=== PATIENT | female | born 1940 | race Caucasian/White ===

== ENCOUNTER 2017-04-30 09:39 | Inpatient (IN) | payer MEDICARE, OTHER ==
[~2017-04-30] VITALS: Ht 154.9 cm; Wt 66.9 kg
--- NOTE | 2017-04-30 10:07 | ERD ---
ER Documentation Chief Complaint Chief Complaint sob sent by pmd for chf HPI 76-year-old female, Mormon, with a history of CHF, LBBB, hyperlipidemia and thyroid disease, referred to the ED by her primary care physician Dr. Ornelas for evaluation of shortness of breath and congestive heart failure. She was in her usual state of health until yesterday; she began to experience exertional dyspnea and nonproductive cough. Denies chest pain or palpitations. No orthopnea or paroxysmal nocturnal dyspnea. No leg pain or swelling. Denies abdominal pain, nausea, vomiting, diarrhea constipation. No URI symptoms, rhinorrhea or odynophagia. Denies headache, visual changes, focal weakness or numbness. No skin rash. No fevers or chills. ROS All systems reviewed and are negative except as per history of present illness. Medications Home Meds Reported Medications Levothyroxine Sodium* (Levothyroxine Sodium*) 25 Mcg Tablet, 25 MCG PO BEFORE BREAKFAST, #30 TAB 04/30/17 Simvastatin* (Zocor*) 20 Mg Tablet, 20 MG PO QHS, #30 TAB 04/30/17 Allergies Allergies: Coded Allergies: Penicillins (Verified Allergy, Severe, 04/30/17) iodine (Verified Allergy, Severe, 04/30/17) PMhx/Soc Reviewed in chart. As per HPI. It was witnessed. History of Surgery: Yes (Cholecystectomy, partial hysterectomy) Anesthesia Reaction: No Hx Neurological Disorder: No Hx Respiratory Disorders: No Hx Cardiac Disorders: Yes (CHF, Left bundle branch block) Hx Psychiatric Problems: No Hx Miscellaneous Medical Probl: Yes (Hyperlipidemia, thyroid) Hx Alcohol Use: Yes Hx Substance Use: No Hx Tobacco Use: No FmHx Mother: CVA at the age of 80. No family history of coronary artery disease or sudden cardiac . Physical Exam Vitals Vital Signs Date Time Temp Pulse Resp B/P Pulse Ox O2 Delivery O2 Flow Rate FiO2 04/30/17 13:22 98.6 89 18 126/82 98 2.0 04/30/17 10:15 Nasal Cannula 2 04/30/17 09:42 98.6 115 20 147/84 94 Physical Exam Const: Alert, no acute distress. Head: Atraumatic Eyes: Normal Conjunctiva ENT: Normal External Ears, Nose and Mouth. Neck: Full range of motion. JVD. No lymphadenopathy or masses Resp: Breath sounds are equal bilaterally with crackles at the bases. No rhonchi or wheezes. Cardio: Regular rate and rhythm, no murmurs Abd: Soft, non tender, obese, non distended. Normal bowel sounds Skin: No petechiae or rashes Back: No midline or flank tenderness Ext: No cyanosis. 1+ pretibial edema. No calf swelling or tenderness. Pulses 4+ in all extremities. Neur: Awake and alert no focal deficit observed. Psych: Normal Mood and Affect Result Diagram: 04/30/17 1021 04/30/17 1021 Results 24 hrs Laboratory Tests Test 04/30/17 10:21 White Blood Count 7.610^3/ul Red Blood Count 4.8810^6/ul Hemoglobin 14.4g/dl Hematocrit 43.2% Mean Corpuscular Volume 88.5fl Mean Corpuscular Hemoglobin 29.5pg Mean Corpuscular Hemoglobin Concent 33.3g/dl Red Cell Distribution Width 12.0% Platelet Count 35983^3/UL Mean Platelet Volume 11.9fl Neutrophils % 64.7% Lymphocytes % 26.0% Monocytes % 7.1% Eosinophils % 1.5% Basophils % 0.4% Nucleated Red Blood Cells % 0.0/100WBC Neutrophils # 4.910^3/ul Lymphocytes # 2.010^3/ul Monocytes # 0.510^3/ul Eosinophils # 0.110^3/ul Basophils # 0.010^3/ul Nucleated Red Blood Cells # 0.010^3/ul Prothrombin Time 13.8Sec Prothrombin Time Ratio 1.1 INR International Normalized Ratio 1.06 Activated Partial Thromboplast Time 30.0Sec Sodium Level 146mmol/L Potassium Level 4.3mmol/L Chloride Level 108mmol/L Carbon Dioxide Level 24mmol/L Anion Gap 18 Blood Urea Nitrogen 15mg/dl Creatinine 0.98mg/dl Glucose Level 107mg/dl Calcium Level 9.6mg/dl Total Bilirubin 2.3mg/dl Direct Bilirubin 0.00mg/dl Indirect Bilirubin 2.3mg/dl Aspartate Amino Transf (AST/SGOT) 40IU/L Alanine Aminotransferase (ALT/SGPT) 41IU/L Alkaline Phosphatase 55IU/L Troponin I < 0.012ng/ml B-Type Natriuretic Peptide 00691BR/ML Total Protein 8.0g/dl Albumin 4.3g/dl Globulin 3.70g/dl Albumin/Globulin Ratio 1.16 Thyroid Stimulating Hormone (TSH) 2.430MIU/L Free Thyroxine 1.71ng/dl Current Medications Medications (Trade) Dose Ordered Sig/Merlyn Route PRN Reason Start Time Stop Time Status Last Admin Dose Admin Furosemide (Lasix) 20 mg ONCE ONCE IV 04/30/17 10:30 04/30/17 10:31 DC 04/30/17 11:08 Ondansetron HCl (Zofran Inj) 4 mg ER BRIDGE PRN IV NAUSEA AND/OR VOMITING 04/30/17 12:00 05/01/17 11:59 Acetaminophen (Tylenol Tab) 650 mg ER BRIDGE PRN PO MILD PAIN/FEVER 04/30/17 12:00 05/01/17 11:59 Levothyroxine Sodium (Synthroid) 25 mcg BEFORE BREAKFAST PO 05/01/17 07:00 Atorvastatin Calcium (Lipitor) 10 mg AC DINNER PO 04/30/17 17:30 05/08/17 17:29 IV Flush (NS 3 ml) 3 ml PER PROTOCOL IV 04/30/17 16:30 Lorazepam (Ativan) 0.5 mg Q8H PRN PO ANXIETY 04/30/17 16:30 Aspirin (Aspirin) 81 mg DAILY PO 05/01/17 09:00 Nitroglycerin (Nitroglycerin (Sl Tab) 0.4 Mg) 1 tab Q5M PRN SL CHEST PAIN 04/30/17 16:30 Zolpidem Tartrate (Ambien) 5 mg QHS PRN PO INSOMNIA 04/30/17 16:30 Docusate Sodium (Colace) 100 mg Q12H PRN PO CONSTIPATION 04/30/17 16:30 Famotidine (Pepcid) 20 mg Q12 PO 04/30/17 21:00 Enoxaparin Sodium (Lovenox) 30 mg DAILY SC 05/01/17 09:00 LABS: CBC unremarkable. TFT's WNL. Mild hypernatremia. Hyperbilirubinemia and markedly elevated BNP. EKG: TIME: 09: 52. Sinus tachycardia. Ventricular rate 115. Left bundle branch block. Normal NC interval. QTC 575 ms which is prolonged. No acute ST segment elevation or depression. No ectopy. EP Interpretation: Abnormal EKG. IMAGING: Chest AP portable: EP interpretation: Cardiomegaly with pulmonary vascular congestion and trace effusion consistent with congestive heart failure. PROCEDURE: Chest x-ray CLINICAL INDICATION: Shortness of breath TECHNIQUE: Chest single view COMPARISON: None FINDINGS: The heart is moderately enlarged in size. Is mild central venous congestion. Suspect small bilateral pleural effusions. There is low lung volumes with linear lower lobe atelectasis. IMPRESSION: 1. Cardiomegaly with mild CHF and probable trace bilateral pleural effusions. 2. Low lung volumes with linear bibasilar atelectasis RPTAT: HH .Will Tavares MD, MD Date Time Electronically viewed and signed by .Will Tavares MD, MD on 04/30/2017 10:28 .W/ Procedures/MDM DOCUMENTS REVIEWED: ED nurse, PMD clinic notes. MEDICAL DECISION MAKIN-year-old female, Mormon with a history of CHF, LBBB, hyperlipidemia and thyroid disease,referred to the ED by her primary care physician Dr. Ornelas for evaluation of shortness of breath. Chest x-ray reveals cardiomegaly with pulmonary vascular congestion consistent with congestive heart failure. Diuresis in the emergency department with Lasix. No acute ischemic EKG changes, chest pain, elevated troponin or other signs of acute coronary syndrome. No leg symptoms hence DVT and pulmonary embolism is unlikely. No hypoxia or signs of respiratory failure. Patient will be admitted for diuresis, cardiology consultation, further evaluation and management. Counseled patient regarding diagnosis, diagnostic results and plan for admission. CALLS/CONSULTS: Time 11:00, Dr. Bird, Dr. Simpson will see the patient in the ED. CALLS/CONSULTS: Time 11:20, Dr. Ornelas, Recommends to telemetry. Requests 5W. PATIENT CARE TRANSITIONED: Time 11:30, Dr. Ornelas. Departure Diagnosis: Primary Impression: Shortness of breath Additional Impressions: Acute on chronic systolic congestive heart failure Left bundle branch block Condition: Serious JUANCHO ALMONTE MD Apr 30, 2017 10:07
--- NOTE | 2017-04-30 10:28 | RADRPT ---
PROCEDURE: Chest x-ray CLINICAL INDICATION: Shortness of breath TECHNIQUE: Chest single view COMPARISON: None FINDINGS: The heart is moderately enlarged in size. Is mild central venous congestion. Suspect small bilateral pleural effusions. There is low lung volumes with linear lower lobe atelectasis. IMPRESSION: 1. Cardiomegaly with mild CHF and probable trace bilateral pleural effusions. 2. Low lung volumes with linear bibasilar atelectasis RPTAT: HH .Will Tavares MD, Date Time Electronically viewed and signed by .Will Tavares MD, on 04/30/2017 10:28 .W/
[2017-04-30] MEDS ORDERED: FUROSEMIDE 20 MG INJ IV ONE (10:30)
[2017-04-30 10:52] LABS: BASOPHILS % 0.4 % (0.0-2.0); EOSINOPHILS # 0.1 10^3/ul (0.0-0.5); EOSINOPHILS % 1.5 % (0.0-7.0); HEMATOCRIT 43.2 % (37.0-47.0); HEMOGLOBIN 14.4 g/dl (12.0-16.0); MEAN CORPUSCULAR HEMOGLOBIN 29.5 pg (29.0-33.0); MEAN CORPUSCULAR HGB CONC 33.3 g/dl (32.0-37.0); MEAN CORPUSCULAR VOLUME 88.5 fl (82.0-101.0); MEAN PLATELET VOLUME 11.9 fl (7.4-10.4); MONOCYTE # 0.5 10^3/ul (0.3-0.9); MONOCYTES % 7.1 % (0.0-11.0); NEUTROPHIL # 4.9 10^3/ul (1.6-7.5); NEUTROPHILS % 64.7 % (39.0-77.0); PLATELET COUNT 203 10^3/UL (140-415); RED BLOOD COUNT 4.88 10^6/ul (4.20-5.40); WHITE BLOOD COUNT 7.6 10^3/ul (4.8-10.8)
[2017-04-30] MEDS ORDERED: LEVO25TA53 PO (10:55)
[2017-04-30] MEDS ORDERED: SIMV20TA PO (10:55)
[2017-04-30 11:04] LABS: ALANINE AMINOTRANSFERASE 41 IU/L (13-69); ALBUMIN 4.3 g/dl (3.3-4.9); ALBUMIN/GLOBULIN RATIO 1.16; ALKALINE PHOSPHATASE 55 IU/L (42-121); ANION GAP 18 (8-16); ASPARTATE AMINO TRANSFERASE 40 IU/L (15-46); BILIRUBIN,INDIRECT 2.3 mg/dl (0-1.1); BILIRUBIN,TOTAL 2.3 mg/dl (0.2-1.3); BLOOD UREA NITROGEN 15 mg/dl (7-20); CALCIUM 9.6 mg/dl (8.4-10.2); CARBON DIOXIDE 24 mmol/L (21-31); CHLORIDE 108 mmol/L (97-110); CREATININE 0.98 mg/dl (0.44-1.00); GLUCOSE 107 mg/dl (70-220); POTASSIUM 4.3 mmol/L (3.5-5.1); SODIUM 146 mmol/L (135-144)
[2017-04-30 11:17] LABS: TROPONIN-I < 0.012 ng/ml (0.00-0.12)
[2017-04-30 11:36] LABS: THYROID STIMULATING HORMONE 2.43 MIU/L (0.465-4.680)
[2017-04-30 11:50] LABS: INR 1.06; PROTIME 13.8 Sec (12.2-14.2); PT RATIO 1.1
[2017-04-30] MEDS ORDERED: ONDANSETRON 4 MG INJ IV PRN (12:00)
[2017-04-30] MEDS ORDERED: ACETAMINOPHEN 325 MG TAB PO PRN (12:00)
--- NOTE | 2017-04-30 13:35 | CONS ---
Date/Time of Note Date/Time of Note DATE: 04/30/17 TIME: 13:32 Assessment/Plan Assessment/Plan Chief Complaint/Hosp Course Acute on chronic systolic heart failure- NYHA III-IV on presentation, unclear etiology of myopathy, declined previous cath. will need diuresis and initiation of medical therapy as toelrated by bp. - iv lasix - watch i/o, daily wts - watch cr, electrolytes - add low dose acei, conisder low dose bb as pt improves if bp stable - serial trop/ekg - echo Hypothyroid: - on therapy, check labs Problems: Consultation Date/Type/Reason Admit Date/Time 04/30/2017 Date of Consultation: Apr 30, 2017 Type of Consultation: Cardiology Reason for Consultation CHF Referring Provider: GARY FARRAR MD Hx of Present Illness 76 y.o. with chronic systolic heart failure, LBBB, ef 45-50% presenting with progressive dyspnea on rest and exertion x 1-2 days. + pnd, orhtopnea, no edema. + dypnea on exertion, short distances even. stops and improves after a few mins. pt with mild chest pressure when walking as well with the sob. no cp at rest. no dizziness, palpitations, fainting. no n/v, fevers, chilss, sweats. no change in diet, heavy salt load. does not take any chf mediations, only simvastatin. all other systems negative Past Medical History Cardiomyopathy, Hypercholesterolemia (272.0) (E78.00) Hypothyroidism (244.9) (E03.9) Left bundle-branch block (426.3) (I44.7) Palpitations (785.1) (R00.2) Shortness of breath (786.05) (R06.02) Social History Never smoker Family History Family history of cerebrovascular accident (CVA) (V17.1) (Z82.3) Exam/Review of Systems Vital Signs Vitals Vital Signs Date Time Temp Pulse Resp B/P Pulse Ox O2 Delivery O2 Flow Rate FiO2 04/30/17 13:22 98.6 89 18 126/82 98 2.0 04/30/17 10:15 Nasal Cannula Exam Constitutional: alert, oriented Psych: nl mood/affect, no complaints Head: normocephalic Eyes: EOMI, nl conjunctiva ENMT: nl external ears & nose Neck: non-tender, supple, No jvd Respiratory: crackles/rales Cardiovascular: S3, nl pulses, regular rate and rhythm, systolic murmur Gastrointestinal: non-tender, soft Musculoskeletal: nl extremities to inspection, nl gait and stance Extremities: normal pulses Neurological: HOME HEALTH TRAVEL PT II-XII intact, nl mental status, nl speech, nl strength Results Result Diagram: 04/30/17 1021 04/30/17 1021 Results 24 hrs Laboratory Tests Test 04/30/17 10:21 White Blood Count 7.6 Red Blood Count 4.88 Hemoglobin 14.4 Hematocrit 43.2 Mean Corpuscular Volume 88.5 Mean Corpuscular Hemoglobin 29.5 Mean Corpuscular Hemoglobin Concent 33.3 Red Cell Distribution Width 12.0 Platelet Count 203 Mean Platelet Volume 11.9 H Neutrophils % 64.7 Lymphocytes % 26.0 Monocytes % 7.1 Eosinophils % 1.5 Basophils % 0.4 Nucleated Red Blood Cells % 0.0 Neutrophils # 4.9 Lymphocytes # 2.0 Monocytes # 0.5 Eosinophils # 0.1 Basophils # 0.0 Nucleated Red Blood Cells # 0.0 Prothrombin Time 13.8 Prothrombin Time Ratio 1.1 INR International Normalized Ratio 1.06 Activated Partial Thromboplast Time 30.0 Sodium Level 146 H Potassium Level 4.3 Chloride Level 108 Carbon Dioxide Level 24 Anion Gap 18 H Blood Urea Nitrogen 15 Creatinine 0.98 Glucose Level 107 Calcium Level 9.6 Total Bilirubin 2.3 H Direct Bilirubin 0.00 Indirect Bilirubin 2.3 H Aspartate Amino Transf (AST/SGOT) 40 Alanine Aminotransferase (ALT/SGPT) 41 Alkaline Phosphatase 55 Troponin I < 0.012 B-Type Natriuretic Peptide 98154 H Total Protein 8.0 Albumin 4.3 Globulin 3.70 H Albumin/Globulin Ratio 1.16 Thyroid Stimulating Hormone (TSH) 2.430 Free Thyroxine 1.71 Imaging Free Text/Dictation CXR report reviewed in emr EKG: image reviewed, NSR LBBB, no change from baseline SHEA MONGE Apr 30, 2017 13:35
[2017-04-30] MEDS ORDERED: NITROGLYCERIN (SL) 0.4 MG TAB SL PRN (16:30)
[2017-04-30] MEDS ORDERED: ZOLPIDEM 5 MG TAB PO PRN (16:30)
[2017-04-30] MEDS ORDERED: DOCUSATE SODIUM 100 MG CAP PO PRN (16:30)
[2017-04-30] MEDS ORDERED: NACL 0.9% 3 ML SYG IV SCH (16:30)
[2017-04-30] MEDS ORDERED: LORAZEPAM 0.5 MG TAB PO PRN (16:30)
[2017-04-30] MEDS ORDERED: ATORVASTATIN 10 MG TAB PO SCH (17:30)
--- NOTE | 2017-04-30 18:52 | HP ---
DATE OF ADMISSION: 04/30/2017 HISTORY OF PRESENT ILLNESS: This is one of several [facility] [place] admissions for this 76-year-old woman admitted with chief complaint of shortness of breath. The patient presented to my office this morning complaining of approximately a 14-hour history of sh ortness of breath on exertion. Denied any chest pain or palpitations or other symptomology and at est she felt alright, but also complained of some orthopnea and had difficulty lying flat. She pres ented to the office with the above complaints. Evaluation in my office revealed the following: The patient had somewhat of a tachycardia with a pu lse rate of 108. Her EKG revealed a chronic change, which was a left bundle branch block, however, heart rate was much faster than usual and her chest x-ray was compatible with congestive heart failu re with cardiomegaly and mild congestive changes. [facility] evaluation was undertaken and the patient will be admitted with a diagnos is of new onset congestive heart failure, rule out an [place], rule out other etiologies. In terms of her prior cardiac history, the patient has been followed by Dr. García Rodriguez for some no nspecific cardiac complaints, which revealed an abnormality, as well as a thallium treadmill. She h as had chronic left bundle branch block and was diagnosed with idiopathic cardiomyopathy at that par ticular point in time. She is also being treated for hyperlipidemia as well as low level hypothyroi dism. PAST MEDICAL AND SURGICAL HISTORY: Included the following: Her pregnancies were vaginal deliveries . She was admitted approximately a year or so ago at [facility] with severe neck pain and sym ptoms of numbness in one hand, and felt that possibly this was a stroke. However, ultimately it was determined that this was all result of cervical disk disease with radiculopathy symptoms of the abo ve. Other than that, she has had really no other medical admissions to speak of. She has had an op en cholecystectomy, had a cataract done in her right eye, had surgery on an ovary done in the past. Other than that, has not had any major surgical procedures, nor any other major medical illnesses. She has not broken any bones to her knowledge. MEDICATIONS: Currently is taking the following medications: 1. Synthroid 25 mcg a day 2. Simvastatin 20 mg a day. ALLERGIES: SHE IS ALLERGIC TO PENICILLIN, IODINE AND POSSIBLY ONE OF THE MYCINS. SOCIAL HISTORY: The patient is , has 3 children, 5 grandchildren and 2 great grandchildren. She does not smoke. Alcohol socially. Does not drink coffee. Usually has no difficulty sleeping at night. 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 FAMILY HISTORY: Father at 90 of cancer of the stomach. Mother at 91 of a stroke. Two sisters are living, 2 brothers . There is family history of diabetes, heart cancer, hypertension, and stroke. REVIEW OF SYSTEMS HEENT: Denies any significant headaches. CARDIORESPIRATORY: Only currently has some shortness of breath on exertion, as well as dyspnea and orthopnea. GASTROINTESTINAL: No melena or hematemesis. GENITOURINARY: No urgency, frequency. 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 MUSCULOSKELETAL: Positive for neck pain. NEUROPSYCHIATRIC: Unremarkable. GENERAL HEALTH: Has been good. PHYSICAL EXAMINATION: VITAL SIGNS: The patient's blood pressure was 126/82, pulse was 115 initially, came down to 89 afte r diuretic, temperature was 98.6, O2 sat was 98%. GENERAL: The patient was noted to be a well-developed, well-nourished female, alert and cooperative , in no apparent acute distress, oriented to time, place, and person. HEAD, EARS, EYES, NOSE AND THROAT: Head was atraumatic. Eyes: Pupils were equal, reactive to ligh t and accommodation. Fundi were benign. Tympanic membranes were unremarkable. Nose was negative. Mouth was unremarkable. Fair oral hygiene was present. NECK: Supple without any rigidity. Trachea was midline. Thyroid was within normal limits. Neck v eins were slightly distended. Carotid pulses were equal. No bruits were heard. BACK: Unremarkable. CHEST: Symmetrical. BREASTS AND AXILLARY: Did not reveal any masses. LUNGS: Revealed bibasilar scattered coarse rales and a few rhonchi being noted. HEART: PMI is somewhat to the left of the midclavicular line. Sinus tachycardia was noted. No sig nificant murmurs, rubs, gallops were noted. ABDOMEN: Soft, good bowel sounds were noted. No obvious organomegaly, masses, or tenderness. GENITALIA: Normal female external genitalia. PELVIC/RECTAL: Per railway station manager. EXTREMITIES: Did not reveal any clubbing, edema or cyanosis. Peripheral pulses were physiologic. SKIN: Moist and warm without any eruptions. No gross lymphadenopathy was noted. NEUROLOGIC: Grossly intact. IMPRESSION: 1. New onset congestive heart failure in a patient with a history of idiopathic cardiomyopathy, roxann or history of chest pains. 2. Hyperlipidemia. 3. Hypothyroidism. 4. Chronic left bundle branch block. 5. Currently symptoms of shortness of breath as well. DISCUSSION: Review of laboratory and other appropriate data revealed the following: In terms of th e patient's laboratory, CBC was normal. Chemistry panel was normal. BNP was markedly elevated at 1 2,800 compatible with her congestive heart failure. TSH was 2.4, free T4 was normal at 1.71. The p atient's chest x-ray, as mentioned, revealed evidence of congestive heart failure with cardiomegaly and increased markings compatible with failure, albeit mild congestive heart failure, and an early b ilateral pleural effusions being noted as well. The patient's EKG revealed a left bundle branch blo ck and sinus tachycardia. No other acute changes being noted. Other studies done: Pending are ech ocardiogram as well as maybe CAT scan and other appropriate studies. The patient was seen by cardio logist. Lasix was ordered. Further orders are pending. CONDITION ON ADMISSION: Stable. PROGNOSIS: Obviously dependent upon ultimate diagnosis. Dictated By: GARY RAMIREZ/NORA Conf#: [id number] DID#: [id number]
[2017-04-30 18:56] LABS: CREATINE KINASE 71 IU/L (23-200)
[2017-04-30 19:09] LABS: CK-MB 1.36 ng/ml (0.0-2.4)
[2017-04-30 19:12] LABS: TROPONIN-I < 0.012 ng/ml (0.00-0.12)
[2017-04-30] MEDS: ATORVASTATIN 10 MG TAB PO SCH (21:50)
[2017-04-30] MEDS: FAMOTIDINE 20 MG TAB PO SCH (21:50)
[2017-04-30 22:21] LABS: CREATINE KINASE 84 IU/L (23-200)
[2017-04-30 22:30] VITALS: Ht 154.9 cm; Wt 66.9 kg
[2017-04-30 22:31] LABS: CK-MB 1.38 ng/ml (0.0-2.4)
[2017-04-30 22:34] LABS: TROPONIN-I < 0.012 ng/ml (0.00-0.12)
[2017-04-30 22:42] VITALS: TEMP 98.2
[2017-05-01] VITALS (11 sets, daily range): BP systolic 103–131; BP diastolic 2–75; PULSE 84–93; RESP 16–19
[2017-05-01] MEDS: LEVOTHYROXINE 25 MCG TAB PO SCH (06:45)
[2017-05-01 08:21] LABS: BASOPHILS % 0.6 % (0.0-2.0); EOSINOPHILS # 0.1 10^3/ul (0.0-0.5); EOSINOPHILS % 1.3 % (0.0-7.0); HEMATOCRIT 41.7 % (37.0-47.0); HEMOGLOBIN 14.2 g/dl (12.0-16.0); LYMPHOCYTES # 1.6 10^3/ul (0.8-2.9); LYMPHOCYTES % 22.3 % (15.0-51.0); MEAN CORPUSCULAR HEMOGLOBIN 29.7 pg (29.0-33.0); MEAN CORPUSCULAR HGB CONC 34.1 g/dl (32.0-37.0); MEAN CORPUSCULAR VOLUME 87.2 fl (82.0-101.0); MEAN PLATELET VOLUME 11.8 fl (7.4-10.4); MONOCYTE # 0.6 10^3/ul (0.3-0.9); NEUTROPHIL # 4.7 10^3/ul (1.6-7.5); NEUTROPHILS % 66.5 % (39.0-77.0); PLATELET COUNT 213 10^3/UL (140-415); RED BLOOD COUNT 4.78 10^6/ul (4.20-5.40)
[2017-05-01 08:38] LABS: INR 1.06; PROTIME 13.8 Sec (12.2-14.2); PT RATIO 1.1
[2017-05-01 08:39] LABS: PARTIAL THROMBOPLASTIN TIME 29.4 Sec (25.0-35.0)
[2017-05-01 08:48] LABS: ALBUMIN/GLOBULIN RATIO 1.14; BILIRUBIN,INDIRECT 2.8 mg/dl (0-1.1); BILIRUBIN,TOTAL 2.8 mg/dl (0.2-1.3); CALCIUM 9.5 mg/dl (8.4-10.2); CALCIUM 9.7 mg/dl (8.4-10.2); CREATININE 1.03 mg/dl (0.44-1.00); CREATININE 1.05 mg/dl (0.44-1.00); MAGNESIUM 2.1 mg/dl (1.7-2.5); POTASSIUM 4.2 mmol/L (3.5-5.1); POTASSIUM 4.4 mmol/L (3.5-5.1); TOTAL PROTEIN 7.5 g/dl (6.1-8.1)
[2017-05-01] MEDS: ENOXAPARIN 30 MG/0.3 ML SYG SC SCH (09:00)
[2017-05-01] MEDS: ASPIRIN 81 MG TAB PO SCH (09:04)
[2017-05-01] MEDS: FAMOTIDINE 20 MG TAB PO SCH ×2 (09:04→21:32)
--- NOTE | 2017-05-01 09:05 | RADRPT ---
Echocardiogram Report Patient Name: REBECCA ESPINAL H Gender: Female Date: 1940 Study Date: 30-Apr-2017 Body Technician: Damaso Santa [facility] Location: [facility] Ref. Physician: JL MONGE Quality: Adequate Procedures: Transthoracic echocardiogram with complete 2D, M-Mode, and doppler examination. Indications: Congestive Heart Failure. 2D/M Mode Doppler Measurement Value Normal Ranges Measurement Value Normal Ranges LVIDd 2D 6.8 3.5 - 5.6 cm AV Peak Nikunj 1.5 m/sec LVIDs 2D 5.3 2.1 - 4.1 cm AV Peak PG 9.0 mmHg FS 2D 21.4 % LVOT Peak Nikunj 0.4 m/sec LVPWd 2D 1.1 0.6 - 1.1 cm LVOT Peak PG 1.0 mmHg IVSd 2D 1.2 0.6 - 1.1 cm MV E Peak Nikunj 1.5 m/sec IVS/LVPW 2D 1.0 MV Decel Time 113 msec AoR Diam 2D 2.8 2.0 - 3.7 cm MR Peak PG 85.0 mmHg LA/Ao 2D 2 0 - 1 MR Peak Nikunj 4.6 m/sec EDV 2D 313.0 cm3 TR Peak Nikunj 2.8 m/sec ESV 2D 152.0 cm3 TR Peak PG 32.0 mmHg LA Dimen 2D 4.5 2.3 - 4.0 cm RVSP 37.0 mmHg Findings Left Ventricle: Left ventricular wall thickness upper limits of normal. Severe enlargement of left ventricle cavity. Severe global left ventricular systolic dysfunction. Ejection fraction is visually estimated at 1015 %. Tissue Doppler/Mitral Doppler indices are consistent with restrictive physiology with markedly elevated left atrial pressure (Stage IIIIV diastolic dysfunction). E/E`=17. There is global hypokinesis with some mild regional variation. Right Ventricle: Normal right ventricular size. Normal right ventricular systolic function. Left Atrium: There is moderate enlargement of left atrium. Right Atrium: The right atrium is normal in size. Mitral Valve: Mitral valve leaflets appear mildly thickened. Tenting of mitral valve leaflets due to severe LV dilation with mild mitral valve regurgitation. Aortic Valve: No significant aortic stenosis. Aortic sclerosis without stenosis. Mild aortic valve regurgitation. Tricuspid Valve: Normal appearance of the tricuspid valve. Right ventricular systolic pressure is consistent with at least mild pulmonary hypertension. Unable to obtain RVSP due to minimal presence of tricuspid regurgitation. Estimated peak PA systolic pressure mmHg. There is mild tricuspid regurgitation. Pulmonic Valve: Pulmonic valve not well visualized. No evidence of pulmonic regurgitation. Pericardium: Small to moderate pericardial effusion. No echocardiographic evidence to suggest pericardial tamponade. Aorta: Normal aortic root. IVC: Normal size and normal respiratory collapse consistent with normal right atrial pressure. Conclusions 1.Left ventricular wall thickness upper limits of normal. Severe enlargement of left ventricle cavity. Severe global left ventricular systolic dysfunction. Ejection fraction is visually estimated at 10-15 %. Tissue Doppler/Mitral Doppler indices are consistent with restrictive physiology with markedly elevated left atrial pressure (Stage III-IV diastolic dysfunction). E/E`=17. There is global hypokinesis with some mild regional variation. 2.Normal right ventricular size. Normal right ventricular systolic function. 3.There is moderate enlargement of left atrium. 4.The right atrium is normal in size. 5.Mitral valve leaflets appear mildly thickened. Tenting of mitral valve leaflets due to severe LV dilation with mild mitral valve regurgitation. 6.No significant aortic stenosis. Aortic sclerosis without stenosis. Mild aortic valve regurgitation. 7.Normal appearance of the tricuspid valve. Right ventricular systolic pressure is consistent with at least mild pulmonary hypertension. Unable to obtain RVSP due to minimal presence of tricuspid regurgitation. Estimated peak PA systolic pressure mmHg. There is mild tricuspid regurgitation. 8.Small to moderate pericardial effusion. No echocardiographic evidence to suggest pericardial tamponade. 9.Normal size and normal respiratory collapse consistent with normal right atrial pressure. 10.No Vegetation, masses, or thrombi seen. Electronically Signed By: Jl Monge 01-May-2017 09:04:16 -0800 Patient Name: REBECCA ESPINAL H Study Date: 30-Apr-2017 [id number]
--- NOTE | 2017-05-01 10:12 | CONS ---
Date/Time of Note Date/Time of Note DATE: 05/01/17 TIME: 10:06 Assessment/Plan Assessment/Plan Chief Complaint/Hosp Course Acute on chronic systolic heart failure-patient has had interval decrease in ejection fraction now 15-20% with severe LV dilation. Previous report is 40-45 % on a outpatient stress test 2016. Patient presenting with NYHA III-IV symptoms, unclear etiology of myopathy, declined previous cath. Pt will need diuresis and initiation of medical therapy as tolerated by bp. - iv lasix 40 mg. Convert to p.o. prior to discharge - watch i/o, daily wts - watch cr, electrolytes - add low dose lisinopril 2.5 mg p.o. daily -If tolerating lisinopril can add low-dose Coreg tomorrow 3.125MG po bid -Add on labs: Iron/ferritin, HIV antibody screen, thyroid studies have been repeated and are within normal limits Patient will need left heart cath to evaluate for ischemic heart disease. Patient currently states she would like to go home and complete this workup as outpatient if possible. Hypothyroid: - on therapy, labs wnl Problems: Consultation Date/Type/Reason Admit Date/Time Apr 30, 2017 at 11:35 Initial Consult Date 04/30/2017 Type of Consultation: Cardiology Reason for Consultation CHF Referring Provider: GARY FARRAR MD 24 HR Interval Summary Free Text/Dictation Patient states feels better today. Did have good urine output after Lasix yesterday. Patient ambulatory no chest pain shortness of breath. Denies any palpitations dizziness lightheadedness. Telemetry reviewed: Normal sinus rhythm left bundle branch block no arrhythmia Detailed Summary Eyes: no complaints ENT: no complaints Respiratory: no complaints Cardiovascular: no complaints Gastrointestinal: no complaints Exam/Review of Systems Vital Signs Vitals Vital Signs Date Time Temp Pulse Resp B/P Pulse Ox O2 Delivery O2 Flow Rate FiO2 05/01/17 08:41 90 05/01/17 07:24 98.2 16 125/70 93 04/30/17 22:42 Nasal Cannula 2.0 Intake and Output 04/30/17 04/30/17 05/01/17 15:00 23:00 07:00 Intake Total 300 ml Output Total 600 ml 400 ml Balance -600 ml -100 ml Exam Constitutional: alert, oriented Psych: nl mood/affect, no complaints Head: normocephalic Eyes: EOMI, nl conjunctiva ENMT: nl external ears & nose Neck: non-tender, supple, No jvd Respiratory: crackles/rales Cardiovascular: S3, nl pulses, regular rate and rhythm, systolic murmur Gastrointestinal: non-tender, soft Musculoskeletal: nl extremities to inspection, nl gait and stance Extremities: normal pulses 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, nl mental status, nl speech, nl strength Results Result Diagram: 05/01/17 0749 05/01/17 0749 Results 24 hrs Laboratory Tests Test 04/30/17 10:21 04/30/17 18:15 04/30/17 21:40 05/01/17 07:49 White Blood Count 7.6 7.0 Red Blood Count 4.88 4.78 Hemoglobin 14.4 14.2 Hematocrit 43.2 41.7 Mean Corpuscular Volume 88.5 87.2 Mean Corpuscular Hemoglobin 29.5 29.7 Mean Corpuscular Hemoglobin Concent 33.3 34.1 Red Cell Distribution Width 12.0 12.0 Platelet Count 203 200 213 Mean Platelet Volume 11.9 H 11.8 H Neutrophils % 64.7 66.5 Lymphocytes % 26.0 22.3 Monocytes % 7.1 9.0 Eosinophils % 1.5 1.3 Basophils % 0.4 0.6 Nucleated Red Blood Cells % 0.0 0.0 Neutrophils # 4.9 4.7 Lymphocytes # 2.0 1.6 Monocytes # 0.5 0.6 Eosinophils # 0.1 0.1 Basophils # 0.0 0.0 Nucleated Red Blood Cells # 0.0 0.0 Prothrombin Time 13.8 13.8 Prothrombin Time Ratio 1.1 1.1 INR International Normalized Ratio 1.06 1.06 Activated Partial Thromboplast Time 30.0 29.4 Sodium Level 146 H 145 H Potassium Level 4.3 4.2 Chloride Level 108 104 Carbon Dioxide Level 24 31 Anion Gap 18 H 14 Blood Urea Nitrogen 15 16 Creatinine 0.98 1.05 H Glucose Level 107 116 Calcium Level 9.6 9.7 Total Bilirubin 2.3 H 2.8 H Direct Bilirubin 0.00 0.00 Indirect Bilirubin 2.3 H 2.8 H Aspartate Amino Transf (AST/SGOT) 40 28 Alanine Aminotransferase (ALT/SGPT) 41 39 Alkaline Phosphatase 55 53 Troponin I < 0.012 < 0.012 < 0.012 B-Type Natriuretic Peptide 58476 H Total Protein 8.0 7.5 Albumin 4.3 4.0 Globulin 3.70 H 3.50 H Albumin/Globulin Ratio 1.16 1.14 Thyroid Stimulating Hormone (TSH) 2.430 Free Thyroxine 1.71 Creatine Kinase 71 84 Creatine Kinase Index 1.9 1.6 Creatinine Kinase MB (Mass) 1.36 1.38 Hemoglobin A1c 6.1 H Magnesium Level 2.1 Medications Medications Current Medications Lorazepam (Ativan) 0.5 mg Q8H PRN PO ANXIETY Last administered on 05/01/17 06 :38; Admin Dose 0.5 MG; Start 04/30/17 at 16:30 Aspirin (Aspirin) 81 mg DAILY PO Last administered on 05/01/17 09:04; Admin Dose 81 MG; Start 05/01/17 at 09:00 Nitroglycerin (Nitroglycerin (Sl Tab) 0.4 Mg) 1 tab Q5M PRN SL CHEST PAIN; Start 04/30/17 at 16:30 Zolpidem Tartrate (Ambien) 5 mg QHS PRN PO INSOMNIA; Start 04/30/17 at 16:30 Docusate Sodium (Colace) 100 mg Q12H PRN PO CONSTIPATION; Start 04/30/17 at 16 :30 Famotidine (Pepcid) 20 mg Q12 PO Last administered on 05/01/17 09:04; Admin Dose 20 MG; Start 04/30/17 at 21:00 Enoxaparin Sodium (Lovenox) 30 mg DAILY SC ; Start 05/01/17 at 09:00 Atorvastatin Calcium (Lipitor) 10 mg HS PO Last administered on 04/30/17 21: 50; Admin Dose 10 MG; Start 04/30/17 at 21:00 Furosemide (Lasix) 40 mg DAILY IV ; Start 05/01/17 at 10:00 Lisinopril (Zestril) 2.5 mg DAILY PO ; Start 05/01/17 at 09:30 Procedures Procedures Chest x-ray report reviewed in EMR: 1. Cardiomegaly with mild CHF and probable trace bilateral pleural effusions. 2. Low lung volumes with linear bibasilar atelectasis SHEA MONGE May 01, 2017 10:12
[2017-05-01 10:40] LABS: ADD UMIC NO; UR ASCORBIC ACID NEGATIVE (NEGATIVE); UR BILIRUBIN (Dip) NEGATIVE (NEGATIVE); UR BLOOD (Dip) NEGATIVE (NEGATIVE); UR CLARITY CLEAR (CLEAR); UR COLOR YELLOW (YELLOW); UR GLUCOSE (Dip) NEGATIVE (NEGATIVE); UR KETONES (Dip) TRACE mg/dL (NEGATIVE); UR LEUKOCYTE ESTERASE (Dip) NEGATIVE Leu/ul (NEGATIVE); UR NITRITE (Dip) NEGATIVE (NEGATIVE); UR SPECIFIC GRAVITY (Dip) 1.019 (1.003-1.030); UR TOTAL PROTEIN (Dip) NEGATIVE (NEGATIVE); UR UROBILINOGEN (Dip) NEGATIVE (NEGATIVE)
[2017-05-01 10:53] LABS: IRON 72 ug/dl (35-150)
[2017-05-01 11:02] LABS: TOTAL IRON BINDING CAPACITY 318 ug/dl (241-421)
--- NOTE | 2017-05-01 11:30 | PN ---
Date/Time of Note Date/Time of Note DATE: 05/01/17 TIME: 11:25 Assessment/Plan VTE Prophylaxis VTE Prophylaxis Intervention: ambulation, LMWH Lines/Catheters IV Catheter Type (from [facility]): [facility] Assessment/Plan Chief Complaint/Hosp Course symptoms improved much less sob had diuresis yesterday and last night cardiology note appreciate Problems: Assessment/Plan plan continue present RX patient ambulating at this point w/u in progress Subjective 24 Hr Interval Summary Constitutional: no complaints Eyes: no complaints ENT: no complaints Respiratory: no complaints Cardiovascular: no complaints Gastrointestinal: no complaints Genitourinary: no complaints Musculoskeletal: no complaints Skin: no complaints Neurologic: no complaints Endocrine: no complaints Exam/Review of Systems Vital Signs Vitals Vital Signs Date Time Temp Pulse Resp B/P Pulse Ox O2 Delivery O2 Flow Rate FiO2 05/01/17 11:22 98.3 84 16 118/64 96 04/30/17 22:42 Nasal Cannula 2.0 Intake and Output 04/30/17 04/30/17 05/01/17 15:00 23:00 07:00 Intake Total 300 ml Output Total 600 ml 400 ml Balance -600 ml -100 ml Exam Constitutional: alert Psych: no complaints Head: normocephalic ENMT: nl external ears & nose Respiratory: clear to auscultation Cardiovascular: regular rate and rhythm Gastrointestinal: soft Musculoskeletal: nl extremities to inspection Neurological: MANAGER STRATEGY II-XII intact, nl mental status, nl speech, nl strength Results Result Diagram: 05/01/17 0749 05/01/17 0749 Results 24 hrs Laboratory Tests Test 04/30/17 18:15 04/30/17 21:40 05/01/17 03:00 05/01/17 07:47 Platelet Count 200 Creatine Kinase 71 84 Creatine Kinase Index 1.9 1.6 Creatinine Kinase MB (Mass) 1.36 1.38 Troponin I < 0.012 < 0.012 Urine Color YELLOW Urine Clarity CLEAR Urine pH 5.0 Urine Specific [place] 1.019 Urine Ketones TRACE A Urine Nitrite NEGATIVE Urine Bilirubin NEGATIVE Urine Urobilinogen NEGATIVE Urine Leukocyte Esterase NEGATIVE Urine Hemoglobin NEGATIVE Urine Glucose NEGATIVE Urine Total Protein NEGATIVE Iron Level 72 Total Iron Binding Capacity 318 Percent Iron Saturation 23 Test 05/01/17 07:49 White Blood Count 7.0 Red Blood Count 4.78 Hemoglobin 14.2 Hematocrit 41.7 Mean Corpuscular Volume 87.2 Mean Corpuscular Hemoglobin 29.7 Mean Corpuscular Hemoglobin Concent 34.1 Red Cell Distribution Width 12.0 Platelet Count 213 Mean Platelet Volume 11.8 H Neutrophils % 66.5 Lymphocytes % 22.3 Monocytes % 9.0 Eosinophils % 1.3 Basophils % 0.6 Nucleated Red Blood Cells % 0.0 Neutrophils # 4.7 Lymphocytes # 1.6 Monocytes # 0.6 Eosinophils # 0.1 Basophils # 0.0 Nucleated Red Blood Cells # 0.0 Prothrombin Time 13.8 Prothrombin Time Ratio 1.1 INR International Normalized Ratio 1.06 Activated Partial Thromboplast Time 29.4 Sodium Level 145 H Potassium Level 4.2 Chloride Level 104 Carbon Dioxide Level 31 Anion Gap 14 Blood Urea Nitrogen 16 Creatinine 1.05 H Glucose Level 116 Hemoglobin A1c 6.1 H Calcium Level 9.7 Magnesium Level 2.1 Total Bilirubin 2.8 H Direct Bilirubin 0.00 Indirect Bilirubin 2.8 H Aspartate Amino Transf (AST/SGOT) 28 Alanine Aminotransferase (ALT/SGPT) 39 Alkaline Phosphatase 53 Total Protein 7.5 Albumin 4.0 Globulin 3.50 H Albumin/Globulin Ratio 1.14 Medications Medications Current Medications Lorazepam (Ativan) 0.5 mg Q8H PRN PO ANXIETY Last administered on 05/01/17 06 :38; Admin Dose 0.5 MG; Start 04/30/17 at 16:30 Aspirin (Aspirin) 81 mg DAILY PO Last administered on 05/01/17 09:04; Admin Dose 81 MG; Start 05/01/17 at 09:00 Nitroglycerin (Nitroglycerin (Sl Tab) 0.4 Mg) 1 tab Q5M PRN SL CHEST PAIN; Start 04/30/17 at 16:30 Zolpidem Tartrate (Ambien) 5 mg QHS PRN PO INSOMNIA; Start 04/30/17 at 16:30 Docusate Sodium (Colace) 100 mg Q12H PRN PO CONSTIPATION; Start 04/30/17 at 16 :30 Famotidine (Pepcid) 20 mg Q12 PO Last administered on 05/01/17 09:04; Admin Dose 20 MG; Start 04/30/17 at 21:00 Enoxaparin Sodium (Lovenox) 30 mg DAILY SC ; Start 05/01/17 at 09:00 Atorvastatin Calcium (Lipitor) 10 mg HS PO Last administered on 11/22/17at 21: 50; Admin Dose 10 MG; Start 04/30/17 at 21:00 Furosemide (Lasix) 40 mg DAILY IV ; Start 05/01/17 at 10:00 Lisinopril (Zestril) 2.5 mg DAILY PO ; Start 05/01/17 at 09:30 GARY FARRAR MD May 01, 2017 11:30
[2017-05-01] MEDS: LISINOPRIL 5 MG TAB PO SCH (11:51)
[2017-05-01] MEDS: FUROSEMIDE 40 MG INJ IV SCH (11:57)
[2017-05-01 12:11] LABS: FERRITIN 99.2 ng/ml (11.1-264.0)
[2017-05-01] MEDS: ATORVASTATIN 10 MG TAB PO SCH (21:32)
[2017-05-02] VITALS (12 sets, daily range): BP systolic 96–117; BP diastolic 54–67; PULSE 76–84; RESP 18–20
[2017-05-02] MEDS: LEVOTHYROXINE 25 MCG TAB PO SCH (06:52)
[2017-05-02 08:59] LABS: BASOPHILS % 0.4 % (0.0-2.0); EOSINOPHILS # 0.2 10^3/ul (0.0-0.5); EOSINOPHILS % 2.5 % (0.0-7.0); HEMATOCRIT 41.7 % (37.0-47.0); LYMPHOCYTES # 2.1 10^3/ul (0.8-2.9); LYMPHOCYTES % 31.8 % (15.0-51.0); MEAN CORPUSCULAR HEMOGLOBIN 29.5 pg (29.0-33.0); MEAN CORPUSCULAR HGB CONC 33.6 g/dl (32.0-37.0); MEAN CORPUSCULAR VOLUME 87.8 fl (82.0-101.0); MEAN PLATELET VOLUME 11.3 fl (7.4-10.4); MONOCYTE # 0.7 10^3/ul (0.3-0.9); NEUTROPHIL # 3.7 10^3/ul (1.6-7.5); NEUTROPHILS % 55.2 % (39.0-77.0); PLATELET COUNT 202 10^3/UL (140-415); RED BLOOD COUNT 4.75 10^6/ul (4.20-5.40); RED CELL DISTRIBUTION WIDTH 11.9 % (11.5-14.5); WHITE BLOOD COUNT 6.7 10^3/ul (4.8-10.8)
[2017-05-02] MEDS: ENOXAPARIN 30 MG/0.3 ML SYG SC SCH (09:00)
[2017-05-02] MEDS: FAMOTIDINE 20 MG TAB PO SCH ×2 (09:15→21:52)
[2017-05-02] MEDS: LISINOPRIL 5 MG TAB PO SCH (09:15)
[2017-05-02] MEDS: ASPIRIN 81 MG TAB PO SCH (09:15)
[2017-05-02] MEDS: FUROSEMIDE 40 MG INJ IV SCH (09:16)
[2017-05-02 09:23] LABS: INR 0.99; PROTIME 13.1 Sec (12.2-14.2)
[2017-05-02 09:24] LABS: PARTIAL THROMBOPLASTIN TIME 24.2 Sec (25.0-35.0)
[2017-05-02 09:28] LABS: ALBUMIN 3.8 g/dl (3.3-4.9); ALBUMIN/GLOBULIN RATIO 1.11; BILIRUBIN,INDIRECT 2.4 mg/dl (0-1.1); BILIRUBIN,TOTAL 2.4 mg/dl (0.2-1.3); CALCIUM 9.5 mg/dl (8.4-10.2); CREATININE 1.17 mg/dl (0.44-1.00); POTASSIUM 4.2 mmol/L (3.5-5.1); TOTAL PROTEIN 7.2 g/dl (6.1-8.1)
--- NOTE | 2017-05-02 10:34 | PN ---
Date/Time of Note Date/Time of Note DATE: 05/02/17 TIME: 10:28 Assessment/Plan VTE Prophylaxis VTE Prophylaxis Intervention: SCD's (pt. refusing lovenox) Lines/Catheters IV Catheter Type (from Nrs): Peripheral IV Urinary Cath still in place: No Assessment/Plan Problems: (1) Shortness of breath Status: Acute Comment: Due to below. No longer feeling SOB but continues to require O2. (2) Acute on chronic systolic and diastolic heart failure, NYHA class 3 Status: Acute Comment: Due to below but pt. not optimized. Cont. furosemide daily. Monitor BUN/Cr. On lisinopril. Adding carvedilol today per cards. Await word of cardiology (3) Idiopathic cardiomyopathy Status: Chronic Comment: defer to cardiology (4) Left bundle branch block (LBBB) Status: Chronic Comment: defer to cardiology (5) Hypothyroidism Status: Chronic Comment: Cont. LT4 (6) Hyperlipidemia Status: Chronic Comment: Cont. statin (7) Elevated hemoglobin A1c Status: Chronic Comment: Encourage lower carb intake Subjective 24 Hr Interval Summary Constitutional: improved, no complaints, requiring O2 Respiratory: no complaints, No shortness of breath Cardiovascular: no complaints Gastrointestinal: no complaints Genitourinary: no complaints Musculoskeletal: no complaints Neurologic: no complaints Exam/Review of Systems Vital Signs Vitals VS - Last 72 Hours, by Label Date Time Temp Pulse Resp B/P Pulse Ox O2 Delivery O2 Flow Rate FiO2 05/02/17 08:50 77 05/02/17 07:51 98.2 76 20 112/63 93 05/02/17 06:04 3.0 05/02/17 04:08 82 05/02/17 04:00 97.7 88 19 108/62 95 05/02/17 00:39 76 05/02/17 00:00 98.0 91 18 115/65 95 05/01/17 23:50 95 3.0 05/01/17 20:35 84 05/01/17 20:00 Nasal Cannula 2.0 05/01/17 20:00 97.8 89 19 103/61 93 05/01/17 16:22 93 05/01/17 16:00 98.2 98 18 105/62 94 05/01/17 12:30 93 05/01/17 11:22 98.3 84 16 118/64 96 05/01/17 08:41 90 11/23/17 08:00 2.0 05/01/17 07:24 98.2 70 16 125/70 93 05/01/17 04:39 87 05/01/17 04:00 98.2 95 17 131/75 98 05/01/17 00:00 87 05/01/17 00:00 98.2 94 17 130/2 95 04/30/17 22:42 98.2 94 23 120/69 99 Nasal Cannula 2.0 04/30/17 22:30 Nasal Cannula 2.0 04/30/17 20:37 98.5 93 25 115/66 96 Nasal Cannula 2.0 04/30/17 18:36 93 23 130/72 92 Nasal Cannula 2.0 04/30/17 17:00 98.6 93 18 128/70 95 04/30/17 13:22 98.6 89 18 126/82 98 2.0 04/30/17 10:15 Nasal Cannula 2 04/30/17 09:42 98.6 115 20 147/84 94 Vital Signs Date Time Temp Pulse Resp B/P Pulse Ox O2 Delivery O2 Flow Rate FiO2 05/02/17 08:50 77 05/02/17 07:51 98.2 20 112/63 93 05/02/17 06:04 3.0 05/01/17 20:00 Nasal Cannula Intake and Output 05/01/17 05/01/17 05/02/17 14:59 22:59 06:59 Intake Total 650 ml 200 ml Output Total 1000 ml 850 ml Balance -350 ml -650 ml Exam Constitutional: alert, oriented, well developed Psych: nl mood/affect, no complaints Respiratory: clear to auscultation, normal air movement Cardiovascular: nl pulses, regular rate and rhythm, No edema, No murmurs/extra sounds, No rub Gastrointestinal: bowel sounds, nl liver, spleen, non-tender, soft, No mass, No rebound or guarding Musculoskeletal: nl extremities to inspection Extremities: normal pulses, No clubbing, No cyanosis, No edema 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, nl mental status, nl speech, nl strength Results Result Diagram: 05/02/17 0815 05/02/17 0816 Results 24 hrs Laboratory Tests Test 05/02/17 08:11 05/02/17 08:15 05/02/17 08:16 Prothrombin Time 13.1 Prothrombin Time Ratio 1.0 INR International Normalized Ratio 0.99 Activated Partial Thromboplast Time 24.2 L White Blood Count 6.7 Red Blood Count 4.75 Hemoglobin 14.0 Hematocrit 41.7 Mean Corpuscular Volume 87.8 Mean Corpuscular Hemoglobin 29.5 Mean Corpuscular Hemoglobin Concent 33.6 Red Cell Distribution Width 11.9 Platelet Count 202 Mean Platelet Volume 11.3 H Neutrophils % 55.2 Lymphocytes % 31.8 Monocytes % 10.0 Eosinophils % 2.5 Basophils % 0.4 Nucleated Red Blood Cells % 0.0 Neutrophils # 3.7 Lymphocytes # 2.1 Monocytes # 0.7 Eosinophils # 0.2 Basophils # 0.0 Nucleated Red Blood Cells # 0.0 Sodium Level 143 Potassium Level 4.2 Chloride Level 103 Carbon Dioxide Level 30 Anion Gap 14 Blood Urea Nitrogen 19 Creatinine 1.17 H Glucose Level 102 Calcium Level 9.5 Total Bilirubin 2.4 H Direct Bilirubin 0.00 Indirect Bilirubin 2.4 H Aspartate Amino Transf (AST/SGOT) 25 Alanine Aminotransferase (ALT/SGPT) 36 Alkaline Phosphatase 48 Total Protein 7.2 Albumin 3.8 Globulin 3.40 H Albumin/Globulin Ratio 1.11 Medications Medications Current Medications Lorazepam (Ativan) 0.5 mg Q8H PRN PO ANXIETY Last administered on 05/01/17 06 :38; Admin Dose 0.5 MG; Start 04/30/17 at 16:30 Aspirin (Aspirin) 81 mg DAILY PO Last administered on 05/02/17 09:15; Admin Dose 81 MG; Start 05/01/17 at 09:00 Nitroglycerin (Nitroglycerin (Sl Tab) 0.4 Mg) 1 tab Q5M PRN SL CHEST PAIN; Start 04/30/17 at 16:30 Zolpidem Tartrate (Ambien) 5 mg QHS PRN PO INSOMNIA; Start 04/30/17 at 16:30 Docusate Sodium (Colace) 100 mg Q12H PRN PO CONSTIPATION; Start 04/30/17 at 16 :30 Famotidine (Pepcid) 20 mg Q12 PO Last administered on 05/02/17 09:15; Admin Dose 20 MG; Start 04/30/17 at 21:00 Enoxaparin Sodium (Lovenox) 30 mg DAILY SC ; Start 05/01/17 at 09:00 Atorvastatin Calcium (Lipitor) 10 mg HS PO Last administered on 05/01/17 21: 32; Admin Dose 10 MG; Start 04/30/17 at 21:00 Furosemide (Lasix) 40 mg DAILY IV Last administered on 05/02/17 09:16; Admin Dose 40 MG; Start 05/01/17 at 10:00 Lisinopril (Zestril) 2.5 mg DAILY PO Last administered on 05/02/17 09:15; Admin Dose 2.5 MG; Start 05/01/17 at 09:30 Carvedilol (Coreg) 3.125 mg BID PO ; Start 05/02/17 at 10:30 PAULINO PERKINS MD May 02, 2017 10:34
--- NOTE | 2017-05-02 12:25 | CONS ---
Date/Time of Note Date/Time of Note DATE: 05/02/17 TIME: 12:19 Consultation Date/Type/Reason Admit Date/Time Apr 30, 2017 at 11:35 Initial Consult Date Type of Consultation: Cardiology Referring Provider: GARY FARRAR MD 24 HR Interval Summary Free Text/Dictation 76 yowf w/ CHF (EF 45 -> 10-15%), LBBB, and other issues who presented w/ decompensated CHF. Marked decline in EF from prior. Since pt refused cardiac cath in the past, not clear if her cardiomyopathy is ischemic or non-ischemic. Based on how dilated her LV is (on echo report), this has been a acute on chronic process. Pt feels better and denies complaints, but she is still intravascularly overloaded on exam (elevated JVP, crackles in right lower base) . Would increase lisinopril to 5mg daily (and hold coreg until euvolemic). Would also give a second dose of lasix this afternoon. Needs strict I/Os and daily weights to help track progress. If pt appears euvolemic tomorrow, can add coreg (but beta blockers have no benefit in acute decompensated CHF and can actually be harmful if pt is not euvolemic yet. There benefits are long-term.) Exam/Review of Systems Vital Signs Vitals Vital Signs Date Time Temp Pulse Resp B/P Pulse Ox O2 Delivery O2 Flow Rate FiO2 05/02/17 12:15 97.9 85 20 97/56 97 05/02/17 08:00 Nasal Cannula 2.0 Intake and Output 05/01/17 05/01/17 05/02/17 14:59 22:59 06:59 Intake Total 650 ml 200 ml Output Total 1000 ml 850 ml Balance -350 ml -650 ml Exam Constitutional: alert, No distress Neck: other (JVP to angle of jaw w/ + HJR) Respiratory: other (crackles at right base, decrease BS at left base) Cardiovascular: regular rate and rhythm, No systolic murmur Gastrointestinal: other (obese), soft Extremities: No edema Results Result Diagram: 05/02/17 0815 05/02/17 0816 Results 24 hrs Laboratory Tests Test 05/02/17 08:11 05/02/17 08:15 05/02/17 08:16 Prothrombin Time 13.1 Prothrombin Time Ratio 1.0 INR International Normalized Ratio 0.99 Activated Partial Thromboplast Time 24.2 L White Blood Count 6.7 Red Blood Count 4.75 Hemoglobin 14.0 Hematocrit 41.7 Mean Corpuscular Volume 87.8 Mean Corpuscular Hemoglobin 29.5 Mean Corpuscular Hemoglobin Concent 33.6 Red Cell Distribution Width 11.9 Platelet Count 202 Mean Platelet Volume 11.3 H Neutrophils % 55.2 Lymphocytes % 31.8 Monocytes % 10.0 Eosinophils % 2.5 Basophils % 0.4 Nucleated Red Blood Cells % 0.0 Neutrophils # 3.7 Lymphocytes # 2.1 Monocytes # 0.7 Eosinophils # 0.2 Basophils # 0.0 Nucleated Red Blood Cells # 0.0 Sodium Level 143 Potassium Level 4.2 Chloride Level 103 Carbon Dioxide Level 30 Anion Gap 14 Blood Urea Nitrogen 19 Creatinine 1.17 H Glucose Level 102 Calcium Level 9.5 Total Bilirubin 2.4 H Direct Bilirubin 0.00 Indirect Bilirubin 2.4 H Aspartate Amino Transf (AST/SGOT) 25 Alanine Aminotransferase (ALT/SGPT) 36 Alkaline Phosphatase 48 Total Protein 7.2 Albumin 3.8 Globulin 3.40 H Albumin/Globulin Ratio 1.11 Medications Medications Current Medications Lorazepam (Ativan) 0.5 mg Q8H PRN PO ANXIETY Last administered on 05/01/17 06 :38; Admin Dose 0.5 MG; Start 04/30/17 at 16:30 Aspirin (Aspirin) 81 mg DAILY PO Last administered on 05/02/17 09:15; Admin Dose 81 MG; Start 05/01/17 at 09:00 Nitroglycerin (Nitroglycerin (Sl Tab) 0.4 Mg) 1 tab Q5M PRN SL CHEST PAIN; Start 04/30/17 at 16:30 Zolpidem Tartrate (Ambien) 5 mg QHS PRN PO INSOMNIA; Start 04/30/17 at 16:30 Docusate Sodium (Colace) 100 mg Q12H PRN PO CONSTIPATION; Start 04/30/17 at 16 :30 Famotidine (Pepcid) 20 mg Q12 PO Last administered on 05/02/17 09:15; Admin Dose 20 MG; Start 04/30/17 at 21:00 Enoxaparin Sodium (Lovenox) 30 mg DAILY SC ; Start 05/01/17 at 09:00 Atorvastatin Calcium (Lipitor) 10 mg HS PO Last administered on 05/01/17 21: 32; Admin Dose 10 MG; Start 04/30/17 at 21:00 Furosemide (Lasix) 40 mg DAILY IV Last administered on 05/02/17 09:16; Admin Dose 40 MG; Start 05/01/17 at 10:00 Lisinopril (Zestril) 5 mg DAILY PO ; Start 05/03/17 at 09:00; Status UNEDWIN CHRISTENSEN May 02, 2017 12:25
[2017-05-02] MEDS ORDERED: LISINOPRIL 5 MG TAB PO ONE (14:00)
[2017-05-02] MEDS ORDERED: FUROSEMIDE 40 MG INJ IV ONE (15:00)
--- NOTE | 2017-05-02 16:10 | RADRPT ---
Vent Rate: 88 bpm RR Interval: 0 msec RI Interval: 158 msec QRS Duration: 154 msec QT Interval: 444 msec QTC Interval: 537 msec P-R-T [place]: 35 - 34 - 0 degrees Normal sinus rhythm Left bundle branch block Abnormal ECG Electronically Signed By: Kp Bourgeois [id number]
[2017-05-02] MEDS: ATORVASTATIN 10 MG TAB PO SCH (21:51)
[2017-05-03] VITALS (12 sets, daily range): BP systolic 94–110; BP diastolic 54–73; PULSE 65–90; RESP 16–20
[2017-05-03] MEDS: LEVOTHYROXINE 25 MCG TAB PO SCH (06:47)
[2017-05-03] MEDS: ASPIRIN 81 MG TAB PO SCH (08:17)
[2017-05-03] MEDS: FAMOTIDINE 20 MG TAB PO SCH ×2 (08:18→21:39)
[2017-05-03] MEDS: FUROSEMIDE 40 MG INJ IV SCH (08:19)
[2017-05-03] MEDS: ENOXAPARIN 30 MG/0.3 ML SYG SC SCH (08:19)
[2017-05-03] MEDS: LISINOPRIL 5 MG TAB PO SCH (08:19)
[2017-05-03 08:43] LABS: CALCIUM 9.6 mg/dl (8.4-10.2); CREATININE 1.37 mg/dl (0.44-1.00); POTASSIUM 5.1 mmol/L (3.5-5.1)
--- NOTE | 2017-05-03 09:30 | RADRPT ---
PROCEDURE: XR Chest. CLINICAL INDICATION: Shortness of breath. TECHNIQUE: Single frontal view. COMPARISON: 04/30/2017. FINDINGS: There is mild left basilar atelectasis. The lungs are otherwise clear. The heart is enlarged. Calcification is present in the aorta consistent with atherosclerosis. There is no pleural effusion. There is no pneumothorax. IMPRESSION: 1. Mild left basilar atelectasis. 2. Cardiomegaly and atherosclerosis. 3. Otherwise unremarkable chest radiograph. RPTAT: QQ .Juan Daniel Mckenna MD, MD Date Time Electronically viewed and signed by .Juan Daniel Mckenna MD, MD on 05/03/2017 09:29 .R/
[2017-05-03 09:49] LABS: BASOPHILS % 0.4 % (0.0-2.0); EOSINOPHILS # 0.3 10^3/ul (0.0-0.5); EOSINOPHILS % 3.5 % (0.0-7.0); HEMOGLOBIN 14.1 g/dl (12.0-16.0); LYMPHOCYTES # 2.1 10^3/ul (0.8-2.9); LYMPHOCYTES % 27.8 % (15.0-51.0); MEAN CORPUSCULAR HEMOGLOBIN 29.1 pg (29.0-33.0); MEAN CORPUSCULAR HGB CONC 32.8 g/dl (32.0-37.0); MEAN CORPUSCULAR VOLUME 88.7 fl (82.0-101.0); MEAN PLATELET VOLUME 11.7 fl (7.4-10.4); MONOCYTE # 0.8 10^3/ul (0.3-0.9); MONOCYTES % 10.8 % (0.0-11.0); NEUTROPHIL # 4.4 10^3/ul (1.6-7.5); NEUTROPHILS % 57.2 % (39.0-77.0); PLATELET COUNT 209 10^3/UL (140-415); RED BLOOD COUNT 4.85 10^6/ul (4.20-5.40); WHITE BLOOD COUNT 7.6 10^3/ul (4.8-10.8)
--- NOTE | 2017-05-03 10:05 | PN ---
Date/Time of Note Date/Time of Note DATE: 05/03/17 TIME: 09:57 Assessment/Plan VTE Prophylaxis VTE Prophylaxis Intervention: SCD's Lines/Catheters IV C[facility] Type [facility]from [facility] Saline Lock Urinary Cath still in place: No Assessment/Plan Problems: (1) Acute on chronic systolic and diastolic heart failure, NYHA class 3 Status: Acute Comment: Per cardiology pt. still volume overloaded on physical exam. Increased ACEi and gave extra dose of diuretics. Carvedilol held. Will defer to their management, however, pt. w/ rising creatinine level indicating reduced renal blood flow. Further diuresis and medical therapy to reduce renal blood flow must be handled judiciously to prevent acute renal insufficiency. (2) Idiopathic cardiomyopathy Status: Chronic Comment: Defer to cardiology (3) Left bundle branch block (LBBB) Status: Chronic Comment: Defer to cardiology (4) Hypothyroidism Status: Chronic Comment: Cont. LT4 (5) Hyperlipidemia Status: Chronic Comment: Cont. statin. Subjective 24 Hr Interval Summary Constitutional: improved, no complaints, requiring O2 (reports was off O2 and got altered; now back on O2 and feels better) Respiratory: shortness of breath Cardiovascular: no complaints Gastrointestinal: no complaints Genitourinary: no complaints Musculoskeletal: no complaints Neurologic: confusion (when off O2) Exam/Review of Systems Vital Signs Vitals VS - Last 72 Hours, by Label Date Time Temp Pulse Resp B/P Pulse Ox O2 Delivery O2 Flow Rate FiO2 05/03/17 08:13 71 05/03/17 07:51 98.1 69 18 103/58 97 05/03/17 04:04 72 05/03/17 03:54 98.0 81 20 109/73 100 05/03/17 03:39 3.0 05/03/17 00:05 72 05/03/17 00:04 97.7 80 20 110/69 99 05/02/17 21:49 3.0 05/02/17 20:04 80 05/02/17 19:50 98.1 84 20 96/54 98 05/02/17 17:44 3.0 05/02/17 16:53 77 05/02/17 16:12 97.9 83 117/67 96 Nasal Cannula 2.0 05/02/17 12:37 84 05/02/17 12:15 97.9 85 20 97/56 97 05/02/17 08:50 77 05/02/17 08:00 Nasal Cannula 2.0 05/02/17 08:00 94 3.0 05/02/17 07:51 98.2 76 20 112/63 93 05/02/17 06:04 3.0 05/02/17 04:08 82 05/02/17 04:00 97.7 88 19 108/62 95 05/02/17 00:39 76 05/02/17 00:00 98.0 91 18 115/65 95 05/01/17 23:50 95 3.0 05/01/17 20:35 84 05/01/17 20:00 Nasal Cannula 2.0 05/01/17 20:00 97.8 89 19 103/61 93 05/01/17 16:22 93 05/01/17 16:00 98.2 98 18 105/62 94 05/01/17 12:30 93 05/01/17 11:22 98.3 84 16 118/64 96 05/01/17 08:41 90 05/01/17 08:00 2.0 05/01/17 07:24 98.2 70 16 125/70 93 05/01/17 04:39 87 05/01/17 04:00 98.2 95 17 131/75 98 05/01/17 00:00 87 05/01/17 00:00 98.2 94 17 130/2 95 04/30/17 22:42 98.2 94 23 120/69 99 Nasal Cannula 2.0 04/30/17 22:30 Nasal Cannula 2.0 04/30/17 20:37 98.5 93 25 115/66 96 Nasal Cannula 2.0 04/30/17 18:36 93 23 130/72 92 Nasal Cannula 2.0 04/30/17 17:00 98.6 93 18 128/70 95 04/30/17 13:22 98.6 89 18 126/82 98 2.0 04/30/17 10:15 Nasal Cannula 2 Vital Signs Date Time Temp Pulse Resp B/P Pulse Ox O2 Delivery O2 Flow Rate FiO2 05/03/17 08:13 71 05/03/17 07:51 98.1 18 103/58 97 05/03/17 03:39 3.0 05/02/17 16:12 Nasal Cannula Intake and Output 05/02/17 05/02/17 05/03/17 15:00 23:00 07:00 Intake Total 300 ml Balance 300 ml Exam Constitutional: alert, oriented, well developed Psych: nl mood/affect, no complaints Respiratory: clear to auscultation, normal air movement, No crackles/rales Cardiovascular: nl pulses, regular rate and rhythm, No edema, No murmurs/extra sounds, No rub Gastrointestinal: bowel sounds, nl liver, spleen, non-tender, soft, No mass, No rebound or guarding Musculoskeletal: nl extremities to inspection Extremities: normal pulses, No clubbing, No cyanosis, No edema Neurological: NEEDLEWORKER II-XII intact, nl mental status, nl speech, nl strength Results Result Diagram: 05/03/1743 05/03/17 07 Results 24 hrs Laboratory Tests Test 05/03/17 07:43 05/03/17 09:20 White Blood Count 7.6 Red Blood Count 4.85 Hemoglobin 14.1 Hematocrit 43.0 Mean Corpuscular Volume 88.7 Mean Corpuscular Hemoglobin 29.1 Mean Corpuscular Hemoglobin Concent 32.8 Red Cell Distribution Width 12.0 Platelet Count 209 Mean Platelet Volume 11.7 H Neutrophils % 57.2 Lymphocytes % 27.8 Monocytes % 10.8 Eosinophils % 3.5 Basophils % 0.4 Nucleated Red Blood Cells % 0.0 Neutrophils # 4.4 Lymphocytes # 2.1 Monocytes # 0.8 Eosinophils # 0.3 Basophils # 0.0 Nucleated Red Blood Cells # 0.0 Sodium Level 143 Potassium Level 5.1 Chloride Level 99 Carbon Dioxide Level 32 H Anion Gap 17 H Blood Urea Nitrogen 22 H Creatinine 1.37 H Glucose Level 110 Calcium Level 9.6 Bedside Glucose 168 Medications Medications Current Medications Lorazepam (Ativan) 0.5 mg Q8H PRN PO ANXIETY Last administered on 05/01/17 06 :38; Admin Dose 0.5 MG; Start 04/30/17 at 16:30 Aspirin (Aspirin) 81 mg DAILY PO Last administered on 05/03/17 08:17; Admin Dose 81 MG; Start 05/01/17 at 09:00 Nitroglycerin (Nitroglycerin (Sl Tab) 0.4 Mg) 1 tab Q5M PRN SL CHEST PAIN; Start 04/30/17 at 16:30 Zolpidem Tartrate (Ambien) 5 mg QHS PRN PO INSOMNIA; Start 04/30/17 at 16:30 Docusate Sodium (Colace) 100 mg Q12H PRN PO CONSTIPATION; Start 04/30/17 at 16 :30 Famotidine (Pepcid) 20 mg Q12 PO Last administered on 05/03/17 08:18; Admin Dose 20 MG; Start 04/30/17 at 21:00 Enoxaparin Sodium (Lovenox) 30 mg DAILY SC ; Start 05/01/17 at 09:00 Atorvastatin Calcium (Lipitor) 10 mg HS PO Last administered on 05/02/17 21: 51; Admin Dose 10 MG; Start 04/30/17 at 21:00 Furosemide (Lasix) 40 mg DAILY IV Last administered on 05/03/17 08:19; Admin Dose 40 MG; Start 05/01/17 at 10:00 Lisinopril (Zestril) 5 mg DAILY PO Last administered on 05/03/17 08:19; Admin Dose 5 MG; Start 05/03/17 at 09:00 PAULINO PERKINS MD May 03, 2017 10:05
--- NOTE | 2017-05-03 18:17 | CONS ---
Date/Time of Note Date/Time of Note DATE: 05/03/17 TIME: 18:15 Assessment/Plan Assessment/Plan Additional Assessment/Plan 76 yowf w/ CHF (EF 45 -> 10-15%), LBBB, and other issues who presented w/ decompensated CHF. Marked decline in EF from prior. Since pt refused cardiac cath in the past, not clear if her cardiomyopathy is ischemic or non-ischemic. Based on how dilated her LV is (on echo report), this has been a acute on chronic process. Pt's volume status appears better today (JVP ~ 8 cm and no HJR, lungs seem clearer). However, pt had a small rise in creatinine with extra dose of lasix and small increase of lisinopril from 2.5mg to 5mg. Will hold lasix for tomorrow. Would continue lisinopril at current dose (which is starting dose), as she needs it for afterload reduction and LV remodeling. Her sensitivities to the relatively low doses of these meds may complicate her treatment. If she cannot even tolerate 5mg of lisinopril, will have to use hydralazine (which does not have the LV remodeling benefits or mortality benefits). Alternatively , if she has such poor reserve, may need a RHC to guide therapy. Pt does feel her breathing is slightly improved. (Per daily weight, she has only lost about 2 lbs.) Also need to wean patient off oxygen before discharge. Not clear if pt is ever really hypoxemic, but she is kept on oxygen by hourly sales staff b/c pt c/o sob from time to time. Consultation Date/Type/Reason Admit Date/Time Apr 30, 2017 at 11:35 Type of Consultation: Cardiology Referring Provider: GARY FARRAR MD 24 HR Interval Summary Free Text/Dictation [place] lightheaded this am, but feels better now. Denies sob. Exam/Review of Systems Vital Signs Vitals Vital Signs Date Time Temp Pulse Resp B/P Pulse Ox O2 Delivery O2 Flow Rate FiO2 05/03/17 16:49 2.0 05/03/17 16:45 81 05/03/17 15:23 98.2 16 94/54 94 05/03/17 08:00 Nasal Cannula Intake and Output 05/02/17 05/02/17 05/03/17 15:00 23:00 07:00 Intake Total 300 ml Balance 300 ml Exam Constitutional: alert, No distress Neck: other (JVP ~ 8 cm and no HJR) Cardiovascular: regular rate and rhythm, No systolic murmur Extremities: No edema Results Result Diagram: 05/03/1743 05/03/17 0743 Results 24 hrs Laboratory Tests Test 05/03/17 07:43 05/03/17 09:20 White Blood Count 7.6 Red Blood Count 4.85 Hemoglobin 14.1 Hematocrit 43.0 Mean Corpuscular Volume 88.7 Mean Corpuscular Hemoglobin 29.1 Mean Corpuscular Hemoglobin Concent 32.8 Red Cell Distribution Width 12.0 Platelet Count 209 Mean Platelet Volume 11.7 H Neutrophils % 57.2 Lymphocytes % 27.8 Monocytes % 10.8 Eosinophils % 3.5 Basophils % 0.4 Nucleated Red Blood Cells % 0.0 Neutrophils # 4.4 Lymphocytes # 2.1 Monocytes # 0.8 Eosinophils # 0.3 Basophils # 0.0 Nucleated Red Blood Cells # 0.0 Sodium Level 143 Potassium Level 5.1 Chloride Level 99 Carbon Dioxide Level 32 H Anion Gap 17 H Blood Urea Nitrogen 22 H Creatinine 1.37 H Glucose Level 110 Calcium Level 9.6 Bedside Glucose 168 Medications Medications Current Medications Lorazepam (Ativan) 0.5 mg Q8H PRN PO ANXIETY Last administered on 05/01/17 06 :38; Admin Dose 0.5 MG; Start 04/30/17 at 16:30 Aspirin (Aspirin) 81 mg DAILY PO Last administered on 05/03/17 08:17; Admin Dose 81 MG; Start 05/01/17 at 09:00 Nitroglycerin (Nitroglycerin (Sl Tab) 0.4 Mg) 1 tab Q5M PRN SL CHEST PAIN; Start 04/30/17 at 16:30 Zolpidem Tartrate (Ambien) 5 mg QHS PRN PO INSOMNIA; Start 04/30/17 at 16:30 Docusate Sodium (Colace) 100 mg Q12H PRN PO CONSTIPATION; Start 04/30/17 at 16 :30 Famotidine (Pepcid) 20 mg Q12 PO Last administered on 05/03/17 08:18; Admin Dose 20 MG; Start 04/30/17 at 21:00 Enoxaparin Sodium (Lovenox) 30 mg DAILY SC ; Start 05/01/17 at 09:00 Atorvastatin Calcium (Lipitor) 10 mg HS PO Last administered on 05/02/17 21: 51; Admin Dose 10 MG; Start 04/30/17 at 21:00 Furosemide (Lasix) 40 mg DAILY IV Last administered on 05/03/17 08:19; Admin Dose 40 MG; Start 05/01/17 at 10:00 Lisinopril (Zestril) 5 mg DAILY PO Last administered on 05/03/17 08:19; Admin Dose 5 MG; Start 05/03/17 at 09:00 EDWIN CANO May 03, 2017 18:17
[2017-05-03 19:23] LABS: CALCIUM 9.4 mg/dl (8.4-10.2); CREATININE 1.25 mg/dl (0.44-1.00); POTASSIUM 4.4 mmol/L (3.5-5.1)
[2017-05-03] MEDS: ATORVASTATIN 10 MG TAB PO SCH (21:39)
[2017-05-04] VITALS (13 sets, daily range): BP systolic 93–109; BP diastolic 51–58; PULSE 72–80; RESP 18–20
[2017-05-04] MEDS: LEVOTHYROXINE 25 MCG TAB PO SCH (06:31)
[2017-05-04] MEDS: ASPIRIN 81 MG TAB PO SCH (08:18)
[2017-05-04] MEDS: FAMOTIDINE 20 MG TAB PO SCH ×2 (08:18→21:01)
[2017-05-04] MEDS: ENOXAPARIN 30 MG/0.3 ML SYG SC SCH (08:19)
--- NOTE | 2017-05-04 10:19 | PN ---
Date/Time of Note Date/Time of Note DATE: 05/04/17 TIME: 10:16 Assessment/Plan VTE Prophylaxis VTE Prophylaxis Intervention: SCD's Lines/Catheters IV Catheter Type (from Nrs): Saline Lock Urinary Cath still in place: No Assessment/Plan Problems: (1) Acute on chronic systolic and diastolic heart failure, NYHA class 3 Status: Acute Comment: Renal function stabilized last night. Pt. in significant negative fluid balance yesterday. Lasix being held today. Pt. clinically improved, not requiring O2. Defer to cardiology for plan. (2) Idiopathic cardiomyopathy Status: Chronic Comment: Defer to cardiology (3) Left bundle branch block (LBBB) Status: Chronic Comment: Defer to cardiology (4) Hypothyroidism Status: Chronic Comment: Cont. LT4 (5) Hyperlipidemia Status: Chronic Comment: Cont. statin Subjective 24 Hr Interval Summary Constitutional: improved, no complaints, No requiring O2 Respiratory: no complaints, No shortness of breath Cardiovascular: no complaints Gastrointestinal: no complaints Genitourinary: no complaints Musculoskeletal: no complaints Neurologic: no complaints Exam/Review of Systems Vital Signs Vitals VS - Last 72 Hours, by Label Date Time Temp Pulse Resp B/P Pulse Ox O2 Delivery O2 Flow Rate FiO2 05/04/17 08:20 78 05/04/17 08:00 97.6 77 20 103/58 94 05/04/17 07:45 Nasal Cannula 1.0 05/04/17 04:07 Nasal Cannula 2.0 05/04/17 04:04 72 05/04/17 03:57 98.1 66 18 93/51 94 05/04/17 01:05 98.4 81 18 109/58 97 05/04/17 00:04 72 05/03/17 23:22 Nasal Cannula 2.0 05/03/17 20:56 98.2 73 16 105/63 94 05/03/17 20:40 2.0 05/03/17 20:11 90 05/03/17 20:00 05/03/17 16:49 2.0 05/03/17 16:45 81 05/03/17 15:23 98.2 80 16 94/54 94 05/03/17 12:11 81 05/03/17 11:32 98.0 83 16 106/56 97 05/03/17 08:13 71 05/03/17 08:00 Nasal Cannula 2.0 05/03/17 07:51 98.1 69 18 103/58 97 05/03/17 04:04 72 05/03/17 03:54 98.0 81 20 109/73 100 05/03/17 03:39 3.0 05/03/17 00:05 72 05/03/17 00:04 97.7 80 20 110/69 99 05/02/17 21:49 3.0 05/02/17 20:04 80 05/02/17 19:50 98.1 84 20 96/54 98 05/02/17 17:44 3.0 05/02/17 16:53 77 05/02/17 16:12 97.9 83 117/67 96 Nasal Cannula 2.0 05/02/17 12:37 84 05/02/17 12:15 97.9 85 20 97/56 97 05/02/17 08:50 77 05/02/17 08:00 Nasal Cannula 2.0 05/02/17 08:00 94 3.0 05/02/17 07:51 98.2 76 20 112/63 93 05/02/17 06:04 3.0 05/02/17 04:08 82 05/02/17 04:00 97.7 88 19 108/62 95 05/02/17 00:39 76 05/02/17 00:00 98.0 91 18 115/65 95 05/01/17 23:50 95 3.0 05/01/17 20:35 84 05/01/17 20:00 Nasal Cannula 2.0 05/01/17 20:00 97.8 89 19 103/61 93 05/01/17 16:22 93 05/01/17 16:00 98.2 98 18 105/62 94 05/01/17 12:30 93 05/01/17 11:22 98.3 84 16 118/64 96 Vital Signs Date Time Temp Pulse Resp B/P Pulse Ox O2 Delivery O2 Flow Rate FiO2 05/04/17 08:20 78 05/04/17 08:00 97.6 20 103/58 94 05/04/17 07:45 Nasal Cannula 1.0 Intake and Output 05/03/17 05/03/17 05/04/17 15:00 23:00 07:00 Intake Total 450 ml 250 ml Output Total 2150 ml Balance -1700 ml 250 ml Exam Constitutional: alert, oriented, well developed Psych: nl mood/affect, no complaints Respiratory: clear to auscultation, normal air movement Cardiovascular: nl pulses, regular rate and rhythm, No edema, No murmurs/extra sounds, No rub Gastrointestinal: bowel sounds, nl liver, spleen, non-tender, soft, No mass, No rebound or guarding Musculoskeletal: nl extremities to inspection Extremities: normal pulses, No clubbing, No cyanosis, No edema Neurological: OBSTETRICIAN AND GYNAECOLOGIST II-XII intact, nl mental status, nl speech, nl strength Results Result Diagram: 05/03/17 0743 05/03/17 1844 Results 24 hrs Laboratory Tests Test 05/03/17 18:44 Sodium Level 139 Potassium Level 4.4 Chloride Level 97 Carbon Dioxide Level 31 Anion Gap 15 Blood Urea Nitrogen 22 H Creatinine 1.25 H Glucose Level 124 Calcium Level 9.4 Medications Medications Current Medications Lorazepam (Ativan) 0.5 mg Q8H PRN PO ANXIETY Last administered on 05/01/17 06 :38; Admin Dose 0.5 MG; Start 04/30/17 at 16:30 Aspirin (Aspirin) 81 mg DAILY PO Last administered on 05/04/17 08:18; Admin Dose 81 MG; Start 05/01/17 at 09:00 Nitroglycerin (Nitroglycerin (Sl Tab) 0.4 Mg) 1 tab Q5M PRN SL CHEST PAIN; Start 04/30/17 at 16:30 Zolpidem Tartrate (Ambien) 5 mg QHS PRN PO INSOMNIA; Start 04/30/17 at 16:30 Docusate Sodium (Colace) 100 mg Q12H PRN PO CONSTIPATION; Start 04/30/17 at 16 :30 Famotidine (Pepcid) 20 mg Q12 PO Last administered on 05/04/17 08:18; Admin Dose 20 MG; Start 04/30/17 at 21:00 Enoxaparin Sodium (Lovenox) 30 mg DAILY SC ; Start 05/01/17 at 09:00 Atorvastatin Calcium (Lipitor) 10 mg HS PO Last administered on 05/03/17 21: 39; Admin Dose 10 MG; Start 04/30/17 at 21:00 Lisinopril (Zestril) 5 mg DAILY PO Last administered on 11/25/17at 08:19; Admin Dose 5 MG; Start 05/03/17 at 09:00 PAULINO PERKINS MD May 04, 2017 10:19
[2017-05-04 10:46] LABS: CALCIUM 9.6 mg/dl (8.4-10.2); CREATININE 1.2 mg/dl (0.44-1.00)
[2017-05-04] MEDS: LISINOPRIL 5 MG TAB PO SCH (12:01)
--- NOTE | 2017-05-04 14:33 | CONS ---
Date/Time of Note Date/Time of Note DATE: 05/04/17 TIME: 14:29 Assessment/Plan Assessment/Plan Additional Assessment/Plan 76 yowf w/ CHF (EF 45 -> 10-15%), LBBB, and other issues who presented w/ decompensated CHF. Marked decline in EF from prior. Since pt refused cardiac cath in the past, not clear if her cardiomyopathy is ischemic or non-ischemic. Based on how dilated her LV is (on echo report), this has been a acute on chronic process. Clinically, pt appears improved today. She is comfortable off oxygen and denies dyspnea even when walking. Her creatinine has improved (1.20) today. Held lasix today, but continue lisinopril at 5mg daily. She looks euvolemic ( JVP ~ 8cm, no HJR). Weight has decreased since admission. Pt is getting close to being ready for discharge. Will add lose dose coreg today. Tomorrow, would resume lasix at 40mg PO daily (if creatinine continues to improve). Can likely d/c home tomorrow. Keep patient off oxygen (if O2 sats > 92%). Consultation Date/Type/Reason Admit Date/Time Apr 30, 2017 at 11:35 Type of Consultation: Cardiology Referring Provider: GARY FARRAR MD 24 HR Interval Summary Free Text/Dictation Pt feels better. Denies sob. She is off oxygen. No events on telemetry. Exam/Review of Systems Vital Signs Vitals Vital Signs Date Time Temp Pulse Resp B/P Pulse Ox O2 Delivery O2 Flow Rate FiO2 05/04/17 12:34 73 05/04/17 11:39 97.9 20 104/58 96 05/04/17 07:45 Nasal Cannula 1.0 Intake and Output 05/03/17 05/03/17 05/04/17 14:59 22:59 06:59 Intake Total 450 ml 250 ml Output Total 2150 ml Balance -1700 ml 250 ml Exam Constitutional: alert, No distress Neck: other (JVP ~ 8 cm), No jvd Respiratory: clear to auscultation Cardiovascular: regular rate and rhythm, No systolic murmur Extremities: No edema Results Result Diagram: 05/03/17 0743 05/04/17 1000 Results 24 hrs Laboratory Tests Test 05/03/17 18:44 05/04/17 10:00 Sodium Level 139 142 Potassium Level 4.4 4.0 Chloride Level 97 97 Carbon Dioxide Level 31 32 H Anion Gap 15 17 H Blood Urea Nitrogen 22 H 20 Creatinine 1.25 H 1.20 H Glucose Level 124 204 Calcium Level 9.4 9.6 Medications Medications Current Medications Lorazepam (Ativan) 0.5 mg Q8H PRN PO ANXIETY Last administered on 05/01/17 06 :38; Admin Dose 0.5 MG; Start 04/30/17 at 16:30 Aspirin (Aspirin) 81 mg DAILY PO Last administered on 05/04/17 08:18; Admin Dose 81 MG; Start 05/01/17 at 09:00 Nitroglycerin (Nitroglycerin (Sl Tab) 0.4 Mg) 1 tab Q5M PRN SL CHEST PAIN; Start 04/30/17 at 16:30 Zolpidem Tartrate (Ambien) 5 mg QHS PRN PO INSOMNIA; Start 04/30/17 at 16:30 Docusate Sodium (Colace) 100 mg Q12H PRN PO CONSTIPATION; Start 04/30/17 at 16 :30 Famotidine (Pepcid) 20 mg Q12 PO Last administered on 05/04/17 08:18; Admin Dose 20 MG; Start 04/30/17 at 21:00 Enoxaparin Sodium (Lovenox) 30 mg DAILY SC ; Start 05/01/17 at 09:00 Atorvastatin Calcium (Lipitor) 10 mg HS PO Last administered on 05/03/17 21: 39; Admin Dose 10 MG; Start 04/30/17 at 21:00 Lisinopril (Zestril) 5 mg DAILY PO Last administered on 05/04/17 12:01; Admin Dose 5 MG; Start 05/03/17 at 09:00 EDWIN CANO May 04, 2017 14:33
[2017-05-04] MEDS: ATORVASTATIN 10 MG TAB PO SCH (21:00)
[2017-05-05] VITALS (9 sets, daily range): BP systolic 103–114; BP diastolic 54–63; PULSE 66–90; RESP 16–18
[2017-05-05] MEDS: LEVOTHYROXINE 25 MCG TAB PO SCH (05:52)
--- NOTE | 2017-05-05 08:13 | PN ---
Date/Time of Note Date/Time of Note DATE: 05/05/17 TIME: 08:09 Assessment/Plan VTE Prophylaxis VTE Prophylaxis Intervention: ambulation Lines/Catheters [facility]from [facility] Saline Lock Urinary Cath still in place: No Assessment/Plan Chief Complaint/Hosp Course symptoms improved much less sob had diuresis yesterday and last night cardiology note appreciate Problems: Assessment/Plan patient doing better await cardiology re possible discharge today.much improved from admission Subjective 24 Hr Interval Summary Free Text/Dictation more comfortable today sitting up in chair thisam Constitutional: no complaints Eyes: no complaints ENT: no complaints Respiratory: no complaints Cardiovascular: no complaints Gastrointestinal: no complaints Genitourinary: no complaints Musculoskeletal: no complaints Skin: no complaints Neurologic: no complaints Psychological: no complaints Exam/Review of Systems Vital Signs Vitals Vital Signs Date Time Temp Pulse Resp B/P Pulse Ox O2 Delivery O2 Flow Rate FiO2 05/05/17 04:36 68 05/05/17 04:00 97.7 16 113/59 94 05/04/17 23:00 5.0 05/04/17 07:45 Nasal Cannula Intake and Output 05/04/17 05/04/17 05/05/17 15:00 23:00 07:00 Intake Total 960 ml 400 ml Output Total 1500 ml Balance -540 ml 400 ml Exam Constitutional: alert Psych: no complaints Head: normocephalic ENMT: nl external ears & nose Neck: supple Respiratory: clear to auscultation, crackles/rales Cardiovascular: regular rate and rhythm Gastrointestinal: soft Musculoskeletal: nl extremities to inspection Results Result Diagram: 05/03/17 0743 05/04/17 1000 Results 24 hrs Laboratory Tests Test 05/04/17 10:00 Sodium Level 142 Potassium Level 4.0 Chloride Level 97 Carbon Dioxide Level 32 H Anion Gap 17 H Blood Urea Nitrogen 20 Creatinine 1.20 H Glucose Level 204 Calcium Level 9.6 Medications Medications Current Medications Lorazepam (Ativan) 0.5 mg Q8H PRN PO ANXIETY Last administered on 05/01/17 06 :38; Admin Dose 0.5 MG; Start 04/30/17 at 16:30 Aspirin (Aspirin) 81 mg DAILY PO Last administered on 05/04/17 08:18; Admin Dose 81 MG; Start 05/01/17 at 09:00 Nitroglycerin (Nitroglycerin (Sl Tab) 0.4 Mg) 1 tab Q5M PRN SL CHEST PAIN; Start 04/30/17 at 16:30 Zolpidem Tartrate (Ambien) 5 mg QHS PRN PO INSOMNIA; Start 04/30/17 at 16:30 Docusate Sodium (Colace) 100 mg Q12H PRN PO CONSTIPATION; Start 04/30/17 at 16 :30 Famotidine (Pepcid) 20 mg Q12 PO Last administered on 05/04/17 21:01; Admin Dose 20 MG; Start 04/30/17 at 21:00 Enoxaparin Sodium (Lovenox) 30 mg DAILY SC ; Start 05/01/17 at 09:00 Atorvastatin Calcium (Lipitor) 10 mg HS PO Last administered on 05/04/17 21: 00; Admin Dose 10 MG; Start 04/30/17 at 21:00 Lisinopril (Zestril) 5 mg DAILY PO Last administered on 05/04/17 12:01; Admin Dose 5 MG; Start 05/03/17 at 09:00 Carvedilol (Coreg) 3.125 mg BID PO Last administered on 05/04/17 21:01; Admin Dose 3.125 MG; Start 05/04/17 at 21:00 GARY FARRAR MD May 05, 2017 08:13
[2017-05-05] MEDS: ENOXAPARIN 30 MG/0.3 ML SYG SC SCH (08:21)
[2017-05-05] MEDS: FAMOTIDINE 20 MG TAB PO SCH (08:21)
[2017-05-05] MEDS: LISINOPRIL 5 MG TAB PO SCH (08:24)
[2017-05-05] MEDS: ASPIRIN 81 MG TAB PO SCH (08:24)
[2017-05-05 10:31] LABS: CALCIUM 9.4 mg/dl (8.4-10.2); CREATININE 1.09 mg/dl (0.44-1.00); POTASSIUM 4.3 mmol/L (3.5-5.1)
--- NOTE | 2017-05-05 14:50 | CONS ---
Date/Time of Note Date/Time of Note DATE: 05/05/17 TIME: 14:44 Assessment/Plan Assessment/Plan Chief Complaint/Hosp Course Acute on chronic systolic heart failure-patient has had interval decrease in ejection fraction now 15-20% with severe LV dilation. Previous report is 40-45 % on a outpatient stress test 2016. Patient presenting with NYHA III-IV symptoms, unclear etiology of myopathy, declined previous cath. pt improved with diuresis, tolerating low dose coreg/lisinopril. ok to d/c home with close outpt f/u - cont carvedilol 3.125mg po bid - cont lisinopril 5mg daily - restart lasix at 20mg po daily, can adjust dosage as outpt. - f/u as outpt for LHC to r/o ischemic etiology of cardiomyopathy. if negative will need to consider TURN SEWER-ICD device placement. Hypothyroid: - on therapy case d/w Dr. Ornelas Problems: Consultation Date/Type/Reason Admit Date/Time Apr 30, 2017 at 11:35 Initial Consult Date 04/30/2017 Type of Consultation: Cardiology Referring Provider: GARY ORNELAS MD 24 HR Interval Summary Free Text/Dictation no acute events. pt feeling well, no cp/sob. ambulating no sob. denies dizziness , lightheadedness. tele reviewed: NSR no events Detailed Summary Eyes: no complaints ENT: no complaints Respiratory: no complaints Cardiovascular: no complaints Exam/Review of Systems Vital Signs Vitals Vital Signs Date Time Temp Pulse Resp B/P Pulse Ox O2 Delivery O2 Flow Rate FiO2 05/05/17 12:19 66 05/05/17 12:02 97.7 18 114/54 92 05/04/17 23:00 5.0 05/04/17 07:45 Nasal Cannula Intake and Output 05/04/17 05/04/17 05/05/17 15:00 23:00 07:00 Intake Total 960 ml 400 ml Output Total 1500 ml Balance -540 ml 400 ml Exam Constitutional: alert, oriented Psych: nl mood/affect, no complaints Head: normocephalic Eyes: EOMI, nl conjunctiva ENMT: nl external ears & nose Neck: non-tender, supple, No jvd Respiratory: CTA Cardiovascular: nl pulses, regular rate and rhythm, systolic murmur Gastrointestinal: non-tender, soft Musculoskeletal: nl extremities to inspection, nl gait and stance Extremities: normal pulses Neurological: 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 MANAGER II-XII intact, nl mental status, nl speech, nl strength Results Result Diagram: 05/03/17 0743 05/05/17926 Results 24 hrs Laboratory Tests Test 05/05/17 09:27 Sodium Level 139 Potassium Level 4.3 Chloride Level 98 Carbon Dioxide Level 31 Anion Gap 14 Blood Urea Nitrogen 19 Creatinine 1.09 H Glucose Level 165 Calcium Level 9.4 Medications Medications Current Medications Lorazepam (Ativan) 0.5 mg Q8H PRN PO ANXIETY Last administered on 05/01/17 06 :38; Admin Dose 0.5 MG; Start 04/30/17 at 16:30 Aspirin (Aspirin) 81 mg DAILY PO Last administered on 05/05/17 08:24; Admin Dose 81 MG; Start 05/01/17 at 09:00 Nitroglycerin (Nitroglycerin (Sl Tab) 0.4 Mg) 1 tab Q5M PRN SL CHEST PAIN; Start 04/30/17 at 16:30 Zolpidem Tartrate (Ambien) 5 mg QHS PRN PO INSOMNIA; Start 04/30/17 at 16:30 Docusate Sodium (Colace) 100 mg Q12H PRN PO CONSTIPATION; Start 04/30/17 at 16 :30 Famotidine (Pepcid) 20 mg Q12 PO Last administered on 05/05/17 08:21; Admin Dose 20 MG; Start 04/30/17 at 21:00 Enoxaparin Sodium (Lovenox) 30 mg DAILY SC ; Start 05/01/17 at 09:00 Atorvastatin Calcium (Lipitor) 10 mg HS PO Last administered on 05/04/17 21: 00; Admin Dose 10 MG; Start 04/30/17 at 21:00 Lisinopril (Zestril) 5 mg DAILY PO Last administered on 05/05/17 08:24; Admin Dose 5 MG; Start 05/03/17 at 09:00 Carvedilol (Coreg) 3.125 mg BID PO Last administered on 05/05/17 08:23; Admin Dose 3.125 MG; Start 05/04/17 at 21:00 Procedures Procedures cxr report reviewed in SHEA Andersen May 05, 2017 14:50
--- NOTE | 2017-05-05 15:19 | PDOCDIS ---
Discharge Instructions DIAGNOSIS Discharge Diagnosis chf improved hypothyroidism, hyperlipidemia CONDITION Patient Condition: Good HOME CARE INSTRUCTIONS: Diet Instructions: Modified FatSpecial Diet: LOW CHOLESTEROL, LOW FAT ACTIVITY: Activity Restrictions: Slowly Increase Activity Bathing Restrictions: Shower FOLLOW UP/APPOINTMENTS Follow-up Plan 1)Cardiology f/u 2)f/u sanjay rojas in 2 weeks GARY FARRAR MD May 05, 2017 15:19
[2017-05-05] MEDS ORDERED: LISI-313 PO (15:24)
[2017-05-05] MEDS ORDERED: LAS20 PO (15:24)
[2017-05-05] MEDS ORDERED: CARV3.1260 PO (15:24)
--- NOTE | 2017-05-05 16:10 | DS ---
Date/Time of Note Date/Time of Note DATE: 05/05/17 TIME: 16:05 Discharge Summary Admission/Discharge Info Admit Date/Time Apr 30, 2017 at 11:35 Discharge Date/Time 05/05/2017 Discharge Diagnosis chf improved hypothyroidism, hyperlipidemia Patient Condition: Stable (much improved) Consults cardiology Procedures none Hx of Present Illness new onset nof sob on exertion ,orthopnea etc.x 2days seen in office xray showed chf as well as clical exam Hospital Course symptoms improved much less sob had diuresis yesterday and last night cardiology note appreciate.patient continued to make progress medication were titratede and aedjusted Home Meds Reported Medications Levothyroxine Sodium* (Levothyroxine Sodium*) 25 Mcg Tablet, 25 MCG PO BEFORE BREAKFAST, #30 TAB 04/30/17 Simvastatin* (Zocor*) 20 Mg Tablet, 20 MG PO QHS, #30 TAB 04/30/17 Follow-up Plan 1)Cardiology f/u 2)f/u sanjay ia in 2 weeks Primary Care Provider Gary Ornelas MD Time spent on discharge: < 30 minutes Pending Labs Laboratory Tests Test 05/05/17 09:27 Sodium Level 139mmol/L (135-144) Potassium Level 4.3mmol/L (3.5-5.1) Chloride Level 98mmol/L (97-110) Carbon Dioxide Level 31mmol/L (21-31) Anion Gap 14 (8-16) Blood Urea Nitrogen 19mg/dl (7-20) Creatinine 1.09mg/dl (0.44-1.00) Glucose Level 165mg/dl (70-220) Calcium Level 9.4mg/dl (8.4-10.2) GARY ORNELAS MD May 05, 2017 16:10
[2017-05-06] MEDS ORDERED: FUROSEMIDE 20 MG TAB PO SCH (09:00)
== END 2017-05-05 17:05 | disposition home or self-care (01) | DRG 292 ==
LOC: E/R 09:39 → TEL 11:35
PROVIDERS: ADMIT Internal Medicine; ATTEND Internal Medicine
DX: I50.23 Acute on chronic systolic (congestive) heart failure (principal); I42.8 Other cardiomyopathies; I44.7 Left bundle-branch block, unspecified; E03.9 Hypothyroidism, unspecified; E78.5 Hyperlipidemia, unspecified; Z53.1 Procedure and treatment not carried out because of patient's decision for reasons of belief and group pressure
CPT/HCPCS: 36415; 71010; 80048; 80053; 81003; 82550; 82553; 82728; 82962; 83036; 83540; 83735; 83880; 84439; 84443; 84484; 85025; 85049; 85610; 85730; 86703; 93005; 93306; 96374; J1940; J1650

== ENCOUNTER 2017-05-14 05:43 | Day surgery (SDC) | payer MEDICARE, OTHER ==
[2017-05-13 12:18] VITALS: BMI 27.5
[2017-05-14] VITALS (22 sets, daily range): BP systolic 95–110; BP diastolic 51–62; PULSE 78–97; RESP 11–25; Ht 154.9 cm; Wt 63.4 kg
[~2017-05-14] VITALS: Ht 154.9 cm; Wt 63.4 kg
[~2017-05-14 05:43] MED LIST: CARV3.1260 PO; LAS20 PO; LEVO25TA53 PO; LISI-313 PO; SIMV20TA PO
[2017-05-14 06:36] LABS: BASOPHILS % 0.2 % (0.0-2.0); HEMOGLOBIN 14.9 g/dl (12.0-16.0); LYMPHOCYTES # 1.3 10^3/ul (0.8-2.9); LYMPHOCYTES % 19.9 % (15.0-51.0); MEAN CORPUSCULAR HEMOGLOBIN 29.7 pg (29.0-33.0); MEAN CORPUSCULAR HGB CONC 34.7 g/dl (32.0-37.0); MEAN CORPUSCULAR VOLUME 85.8 fl (82.0-101.0); MEAN PLATELET VOLUME 12.3 fl (7.4-10.4); MONOCYTE # 0.1 10^3/ul (0.3-0.9); MONOCYTES % 1.7 % (0.0-11.0); NEUTROPHIL # 5.1 10^3/ul (1.6-7.5); NEUTROPHILS % 77.9 % (39.0-77.0); PLATELET COUNT 202 10^3/UL (140-415); RED BLOOD COUNT 5.01 10^6/ul (4.20-5.40); RED CELL DISTRIBUTION WIDTH 11.9 % (11.5-14.5); WHITE BLOOD COUNT 6.5 10^3/ul (4.8-10.8)
[2017-05-14] MEDS ORDERED: CARV25TA79 PO (06:49)
[2017-05-14] MEDS ORDERED: FURO20TA3 PO (06:49)
[2017-05-14] MEDS ORDERED: ASPI-664 PO (06:49)
[2017-05-14] MEDS ORDERED: LOSA25TA5 PO (06:49)
[2017-05-14 06:51] LABS: INR 1.01; PROTIME 13.4 Sec (11.9-14.9)
[2017-05-14] MEDS ORDERED: CARV3.1260 PO ×2 (06:51→08:21)
[2017-05-14 06:52] LABS: PARTIAL THROMBOPLASTIN TIME 30.9 Sec (25.0-35.0)
[2017-05-14] MEDS ORDERED: HEPARIN 1000 UNITS/ML 10 ML INJ ONE (07:03)
[2017-05-14] MEDS ORDERED: LIDOCAINE 1% (MDV) 20 ML INJ ONE (07:03)
[2017-05-14] MEDS ORDERED: IODIXANOL LOCM 100 ML BTL ONE (07:03)
[2017-05-14 07:04] LABS: ALBUMIN 4.4 g/dl (3.3-4.9); ALBUMIN/GLOBULIN RATIO 1.25; BILIRUBIN,INDIRECT 2.3 mg/dl (0-1.1); BILIRUBIN,TOTAL 2.3 mg/dl (0.2-1.3); TOTAL PROTEIN 7.9 g/dl (6.1-8.1)
[2017-05-14] MEDS ORDERED: VERAPAMIL 5 MG INJ ONE (07:04)
[2017-05-14] MEDS ORDERED: MIDAZOLAM 1 MG/ML 2 ML INJ ONE (07:04)
[2017-05-14] MEDS ORDERED: FENTAnyl 50 MCG/ML VIAL ONE (07:04)
[2017-05-14] MEDS ORDERED: NITROGLYCERIN (IC) 100 MCG/ML INJ ONE (07:04)
[2017-05-14 07:10] LABS: CALCIUM 10.2 mg/dl (8.4-10.2); CREATININE 1.13 mg/dl (0.44-1.00); POTASSIUM 4.8 mmol/L (3.5-5.1)
[2017-05-14] MEDS ORDERED: DIPHENHYDRAMINE 50 MG INJ ONE (07:15)
[2017-05-14] MEDS ORDERED: METHYLPREDNISOLONE 125 MG INJ ONE (07:15)
--- NOTE | 2017-05-14 08:20 | QN ---
Documentation Comment Short postoperative note: Procedure performed. Left heart catheterization Admission history and of moderate sedation Preoperative diagnosis Dilated cardiomyopathy Postoperative diagnosis Nonobstructive coronary disease Nonischemic cardiomyopathy telephone exchange operator Jl Monge MD Findings LVEDP 17mmHG Coronary anatomy: Left main: Normal LAD: Mild diffuse disease Left circumflex: Codominant, mild diffuse disease RCA: Codominant, mild diffuse disease Estimated blood loss: Less than 20 cc Complications none Specimens obtained: None Conclusions Nonobstructive coronary disease Nonischemic cardiomyopathy Mildly elevated LV filling pressures Recommendations Follow-up with Dr. Booker as outpatient for medication titration for nonischemic cardiomyopathy JL MONGE May 14, 2017 08:20
[2017-05-14] MEDS ORDERED: AL HYDROX/MG HYDROX/SIMETH 30 ML CUP PO PRN (08:30)
[2017-05-14] MEDS ORDERED: ONDANSETRON 4 MG INJ IV PRN (08:30)
[2017-05-14] MEDS ORDERED: ACETAMINOPHEN 325 MG TAB PO PRN (08:30)
--- NOTE | 2017-05-14 10:20 | OPR ---
DATE OF OPERATION: 05/14/2017 PROCEDURE PERFORMED: 1. Left heart catheterization. 2. Administration of moderate sedation. PREOPERATIVE DIAGNOSES: Severe dilated cardiomyopathy. POSTOPERATIVE DIAGNOSIS: 1. Nonobstructive coronary artery disease. 2. Nonischemic cardiomyopathy. BARN MANAGER: Jl Simpson MD. REFERRING PHYSICIAN: Carlos Ornelas MD. PRIMARY VP CUSTOMER SERVICE: García Rodriguez MD HISTORY: Ms. Cornell is a pleasant 76-year-old woman with a past medical history of hypothyroidism w ho has known cardiomyopathy, previously declined workup. The patient admitted 2 weeks ago due to ac [place] on chronic systolic heart failure with ejection fraction of 15% to 20%, which was a drop from 40 % to 45%. The patient improved with diuresis. She now returns for cardiac catheterization to evalu ate her coronary arteries due to drop in EF. All risks and benefits of procedure were explained roxann or to procedure and patient was had a steroid prepped as well as IV Benadryl prior to procedure due to IODINE ALLERGY. PROCEDURE DESCRIPTION: After informed consent was obtained, the patient was brought to catheterizat ion lab in stable condition. Right wrist was prepped and draped in usual sterile fashion and anesth etized with 1% lidocaine solution. A 6-[place] Terumo Slender sheath was placed in the right radial artery without difficulty using through and through technique. Intra-arterial verapamil and nitrogl ycerin given. IV heparin given. A TIG 4.0 6-[place] diagnostic catheter was advanced to the ascendi ng aorta over a guidewire. This was used to cross the aortic valve over a guidewire and out into th e left ventricle and pressures were obtained. Standard angiograms were then obtained of the left an d right coronary arteries using the same TIG catheter. After angiograms were obtained, the catheter was removed over a guidewire, and all catheters and wires were removed. TR band was used for hemos tasis after radial sheath was removed. The patient tolerated procedure well without complication. ESTIMATED BLOOD LOSS: Less than 20 mL. COMPLICATIONS: None. SPECIMENS OBTAINED: None. FINDINGS: LVEDP is a 17 mmHg. There is no significant gradient on LV to AO pullback. CORONARY ANATOMY: 1. Left main: Large without significant disease. 2. Left anterior descending artery: Is a large long wraparound artery. It does appear to have dif fuse disease 20% to 30% throughout artery. There is a small D1 and average sized D2 artery, which a re without disease. 3. Left circumflex artery: Is a large codominant artery. It has mild stenosis of 30% in the proxi mal area and diffuse disease 20% throughout the artery. There are multiple OM branches, which are l allan and tortuous without significant disease. 4. Right coronary artery: Is a codominant branch, average in size. There is mild diffuse disease 20% to 30% throughout artery. It does give the right PDA, which is long and average to small in siz e without significant disease. SUMMARY: 1. Mild diffuse coronary artery disease. 2. Mildly elevated LV filling pressures CONCLUSIONS: 1. Most likely nonischemic cardiomyopathy given the degree of LV dysfunction and only mild coronary artery disease. 2. Recommend continued maximal medical therapy for nonischemic cardiomyopathy. 3. The patient will follow up with Dr. Rodriguez as outpatient for medication titration as well as con sideration for resynchronization therapy, ICD placement. Dictated By: JL GIORDANO/NORA Conf#: [id number] DID#: [id number]
--- NOTE | 2017-05-15 13:15 | RADRPT ---
Vent Rate: 98 bpm RR Interval: 0 msec [place] Interval: 166 msec QRS Duration: 156 msec QT Interval: 414 msec QTC Interval: 528 msec P-R-T [place]: 51 - -9 - 119 degrees Normal sinus rhythm Left bundle branch block Abnormal ECG Electronically Signed By: Jl Simpson [id number]
== END 2017-05-15 17:23 | disposition home or self-care (01) ==
LOC: SDS 05:43
PROVIDERS: ATTEND Internal Medicine Interventional Cardiology
DX: I25.10 Atherosclerotic heart disease of native coronary artery without angina pectoris (principal); I42.9 Cardiomyopathy, unspecified; I10 Essential (primary) hypertension; I50.23 Acute on chronic systolic (congestive) heart failure
CPT/HCPCS: 80053; 85025; 85610; 85730; 93005; 93458; C1887; J1200; J1644; J2250; J2930; J3010; Q9967